=== PATIENT | female | born 1980 | race Caucasian/White ===

== ENCOUNTER 2024-08-04 08:45 | Outpatient (OUT) | payer MEDICAID, SELFPAY ==
--- NOTE | 2024-08-04 | XR_ITS ---
The [address] [address] Patient Name: GEGE POPE MRN: [id number] date: 1980 Sex: F Assigned Patient Location: Current Patient Location: Accession/Order Number: [id number] Exam Date: 08/04/2024 09:02 Report Date: 08/04/2024 10:57 At the request of: CHRISTINA TOBIN Procedure: XR foot LT min 3V PROCEDURE: XR foot LT min 3V COMPARISON: None. HISTORY: LEFT FOOT PAIN FINDINGS: BONES:Mild to moderate hallux valgus. Mild osteoarthropathy first metatarsal-phalangeal joint SOFT TISSUES:Negative. No visible soft tissue swelling. EFFUSION:None visible. OTHER: Negative. XR/XR foot LT min 3V IMPRESSION: Mild to moderate moderate hallux valgus with first metatarsal-phalangeal joint osteoarthritis Electronically authenticated by: ALPHONSO APARICIO Date: 08/04/2024 10:57
== END 2024-08-04 08:46 | disposition home or self-care (01) ==
PROVIDERS: Visit Provider Podiatrist Foot & Ankle Surgery
DX: M79.672 Pain in left foot (principal)
CPT/HCPCS: 73630

== ENCOUNTER 2024-12-14 13:05 | Emergency (ER) | payer MEDICAID, SELFPAY ==
[2024-12-14 13:10] VITALS: BP 145/87; PULSE 86; TEMP 36.7; O2SAT 99; BMI 20.6
--- OUTSIDE RECORDS SUMMARY | 2024-12-14 13:31 | XMS_ITS | CCD ---
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 Years 0.40-4.50 Ranges First trimester 0.26-2.66 Second trimester 0.55-2.73 Third trimester 0.43-2.91 Performed By: #### 7 600, 57001, 6399 #### [facility] [address], [address] [place] [address] Stuffed Casing Tier: Kiko Coughlin MD Estradiolon 07-24-2024 E2 [Mass/Vol] 287 pg/mL [facility] Comment on above: Reference Range Follicular Phase: 19-144 Mid-Cycle: 64-357 Luteal Phase: 56-214 Postmenopausal: < or = 31 Reference range established on post-pubertal patient population. No pre-pubertal reference range established using this assay. For any patients for whom low Estradiol levels are anticipated (e.g. males, pre-pubertal children and hypogonadal/post-menopausal females), the [facility] Estradiol, Ultrasensitive, LCMSMS assay is recommended (order code 32491). Please note: patients being treated with the drug fulvestrant (Faslodex(R)) have demonstrated significant interference in immunoassay methods for estradiol measurement. The cross reactivity could lead to falsely elevated estradiol test results leading to an inappropriate clinical assessment of estrogen status. [facility] order code 43065-[id number], Ultrasensitive LC/MS/MS demonstrates negligible cross reactivity with fulvestrant. Follicle stimulating hormone on 07-24-2024 Follitropin Qn 5.0 m[IU]/mL mIU/mL [facility] Comment on above: Reference Range Follicular Phase 2.5-10.2 Mid-cycle Peak 3.1-17.7 Luteal Phase 1.5- 9.1 Postmenopausal 23.0-116.3 No Panel Informationon 07-24 Performing Organization Information Site ID: QPT Name: [facility] Address: [address] [place] [address], [address] [place] [id number] Director: Kiko Coughlin MD [facility] XR Spine Cervical Complete w /Flex AND [place] 07-04-2022 XR Spine Cervical Complete w/Flex AND Ext HISTORY: Radiating neck pain FINDINGS: Mild disc space loss. Minimal osteophyte formation C5-6, C6-7. Mild diffuse facet arthropathy, minimal neuroforaminal stenosis. No acute fracture or dislocation or significant spondylolisthesis is seen. Prevertebral soft tissues are normal. No significant carotid bulb calcifications are identified. Flexion and extension: C1-2, C2-3: Normal alignment no change C3-4 and C4-5: 0 mm with extension, 1 mm anterolisthesis with flexion. C5-6: 1 mm retrolisthesis, minimal change. C6-7: Normal alignment, no change. IMPRESSION: 1. 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 2. Minimal motion with flexion and extension. Report reported and signed by Raheel Cortez on 07/04/2022 1242 Normal [facility] Trimmer Helper Garrison 02-19-2022 L - -------- Specimen: Received: 02/19/22 Status: MARYA Chaves Num: [id number] Spec Type: Surgical Subm Dr: Altaf Tobin DO Tissues: A Uterus w/ or w/o tubes ovaries except neoplastic or prolap (UTERUS) Procedures: HE /, Gross/Micro L5 -------- Patient Age/Sex Location Account Attending Physician -------- Marisela Nath 41/F MD [id number] Altaf Tobin DO -------- SPEC NUM: [id number] RECD: 02/19/22 STATUS: MARYA CHAVES NUM: [id number] TIFFANI: 02/19/22- [facility] DR: Altaf Tobin, ENTERED: 02/19/22 [facility] DR: [facility] SPEC TYPE: Surgical DEPT: S ENTERED BY: [id number] RECV BY: [id number] ORDERED: HE Stain/12, Gross/Micro L5 ORDERED: HE Stain/12, Gross/Micro L5 Pathological Diagnosis Uterus, cervix, bilateral fallopian tubes and right ovary, total hysterectomy, bilateral salpingectomy and right oophorectomy: - Secretory phase endometrium with superficial adenomyosis. - Cervix with nabothian cysts. - Benign peritoneal reflection simple cyst. - Left fallopian tube with paratubal cysts. - Right fallopian tube with no significant pathologic findings. - Right ovary with hemorrhagic luteal cyst, follicular cysts and area of vascular malformation. Clinical Information Pelvic pain, hydrosalpinx, dysmenorrhea, adenomyosis Gross Description Received in formalin labeled with the patient's name, number and cervix, uterus, bilateral fallopian tubes and right ovary is a 111.3 g uterus and cervix (8.4 cm cervix - fundus by 5.5 cm cornu - cornu by 4.2 cm anterior-posterior) with attached bilateral fimbriated and ligated appearing fallopian tubes (left: 4 cm in length by 0.6 cm in diameter, right: 4.5 cm in length by 0.5 cm in diameter) and attached intact right ovary (3.5 x 2.2 x 1.9 cm). The uterine serosa is johnson-pink and smooth (anterior = blue and posterior = black). There is a 1 cm loosely adherent intact cyst attached to the peritoneal reflection. There is a 3.5 x 3 cm johnson-pink, smooth ectocervix that surrounds a 0.9 cm slitlike os. The left cornu has an attached ligation clip. The specimen is bivalved to reveal a 3.5 x 2.5 cm endometrial cavity. The cavity is lined by a johnson-pink, finely lobulated mucosa that measures up to 0.5 -------- Specimen: Received: 02/19/22 Status: MARYA Chaves Num: [id number] Spec Type: Surgical Subm Dr: Altaf Tobin DO Tissues: A Uterus w/ or w/o tubes ovaries except neoplastic or prolap (UTERUS) Procedures: HE /12, Gross/Micro L5 -------- Patient: PhamMarisela [id number] (Continued) -------- Specimen: Received: 02/19/22 (Continued) Gross Description (Continued) Signed (signature on file) Andrew Roe MD 02/20/22 1701 -------- Specimen: Received: 02/19/22 Status: MARYA Chaves Num: [id number] Spec Type: Surgical Subm Dr: Altaf Tobin, Tissues: A Uterus w/ or w/o tubes ovaries except neoplastic or prolap (UTERUS) Procedures: HE , Gross/Micro L5 -------- Patient: Marisela Nath [id number] (Continued) -------- Specimen: [id number] Received: 02/19/22 (Continued) Gross Description (Continued) cm in thickness. The myometrium is johnson-pink and rubbery and measures up to 1.6 cm in thickness. The cervix is lined by a johnson-pink, corrugated mucosa. Sectioning of the cervix reveals johnson, rubbery cut surfaces with few nabothian cysts. The cysts measure up to 0.6 cm and contain clear to cloudy mucoid material. The fallopian tube serosa is pink-purple with few paratubal cysts. The cysts measure up to 1 cm. Sectioning reveals a pinpoint lumen lined by johnson-pink, soft mucosa. Sectioning of the right ovary reveals johnson-pink, solid and cystic cut surfaces with evidence of possible corpus lutea and albicans. [employer] sections are submitted in 12 cassettes as follows: A1 - Anterior endomyometrium A2 - Posterior endomyometrium A3 - Anterior cervix A4 - Posterior cervix A5 - Peritoneal reflection cyst A6-A7 - [employer]obile Taillight Assembler left fallopian tube A8-A9 - Automobile Taillight Assembler right fallopian tube (more content not included)... [facility] COVID[facility] [place] SARS-CoV-2 (COVID-19) RNA KARY+probe Ql (Unsp spec) Positive Critically abnormal Negative [facility] Comment on above: Order Comment: Alden ts called at 0910 on 01/23/22. Healthcare Worker?: N Result Comment: Posi tive results will only be called to Providers for the following groups of patients: Pre-Surgical Testing, Emergency Room, and Inpatients. Testing for SARS-CoV-2 by RT-PCR This test was developed and its performance characteristics determined by [employer] [employer] and validated at the [facility]. This test has not been FDA cleared or approved. This test has been authorized by FDA under an Emergency Use Authorization (EUA). This test has been validated in accordance with the FDA's Guidance Document (Policy for Diagnostics Testing in Laboratories Certified to Perform High Complexity Testing under CLIA prior to Emergency Use Authorization for Coronavirus Disease-2019 during the Public Health Emergency) issued on February 03, 2020. This test is only authorized for the duration of time the declaration that circumstances exist justifying the authorization of the emergency use of in vitro diagnostic tests for detection of SARS-CoV-2 virus and/or diagnosis of COVID-19 infection under section 564(b)(1) of the Act, 21 U.S.C. 360bbb-3(b)(1), unless the authorization is terminated or revoked sooner. PERFORMED BY: [place] [address] PATHOLOGIST CRUSHER AND BINDER OPERATOR MINA RUIZ M.D. Performed By: #### C OVID 19 [facility] [place] #### [address] RESPIRATORY PANEL PLUSon Adenovirus Not detected Normal NOT DETECTED [facility] Comment on above: Performed By: #### R SPLUS #### [facility] [address] [place] [address] Dr. Joan Groves Parapertusis Not detected Normal NOT DETECTED [facility] Comment on above: Performed By: #### R SPLUS #### [facility] [address] [place] [address] Dr. Joan Groves Pertussis Not detected Normal NOT DETECTED [facility] Comment on above: Performed By: #### R SPLUS #### [facility] [address] [place] [address] Dr. Joan Valenzuela Chlamydia Pneumoniae Not detected Normal NOT DETECTED [facility] Comment on above: Performed By: #### R SPLUS #### [facility] [address] [place] [address] Dr. Joan Valenzuela Coronavirus 229E Not detected Normal NOT DETECTED [facility] Comment on above: Performed By: #### R SPLUS #### [facility] [address] [place] [address] Dr. Joan Valenzuela Coronavirus HKU1 Not detected Normal NOT DETECTED [facility] Comment on above: Performed By: #### R SPLUS #### [facility] [address] [place] [address] Dr. Joan Valenzuela Coronavirus NL63 Not detected Normal NOT DETECTED [facility] Comment on above: Performed By: #### R SPLUS #### [facility] [address] [place] [address] Dr. Joan Valenzuela Coronavirus OC43 Not detected Normal NOT DETECTED [facility] Comment on above: Performed By: #### R SPLUS #### [facility] [address] [place] [address] Dr. Joan Valenzuela Influenza A H1 2009 Not detected Normal NOT DETECTED [facility] Comment on above: Performed By: #### R SPLUS #### [facility] [address] [place] [address] Dr. Joan Valenzuela Influenza A H3 Not detected Normal NOT DETECTED [facility] Comment on above: Performed By: #### R SPLUS #### [facility] [address] [place] [address] Dr. Joan Valenzuela Influenza B Not detected Normal NOT DETECTED The [facility] Comment on above: Performed By: #### R SPLUS #### [facility] [address] [place] [address] Dr. Joan Valenzuela Metapneumovirus Not detected Normal NOT DETECTED [facility] Comment on above: Performed By: #### R SPLUS #### [facility] [address] [place] [address] Dr. Joan Valenzuela Mycoplas. Pneumoniae Not detected Normal NOT DETECTED [facility] Comment on above: Performed By: #### R SPLUS #### [facility] [address] [place] [address] Dr. Joan Valenzuela Parainfluenza 1 Not detected Normal NOT DETECTED [facility] Comment on above: Performed By: #### R SPLUS #### [facility] [address] [address] [address] Joan Valenzuela Parainfluenza 2 Not detected Normal NOT DETECTED [facility] Comment on above: Performed By: #### R SPLUS #### [facility] [address] [place] [address] Dr. Joan Valenzuela Parainfluenza 3 Not detected Normal NOT DETECTED [facility] Comment on above: Performed By: #### R SPLUS #### [facility] [address] [place] [address] Dr. Joan Valenzuela Parainfluenza 4 Not detected Normal NOT DETECTED [facility] Comment on above: Performed By: #### R SPLUS #### [facility] [address] [place] [address] Dr. Joan Valenzuela Rhino/Enterovirus Not detected Normal NOT DETECTED [facility] Comment on above: Performed By: #### R SPLUS #### [facility] [address] [place] [address] Dr. Joan Valenzuela RP2 Header 1 RESPIRATORY PANEL: VIRUSES Normal [facility] Comment on above: Performed By: #### R SPLUS #### [facility] [address] [place] [address] Dr. Joan Valenzuela RP2 Header 2 RESPIRATORY PANEL: BACTERIA Normal [facility] Comment on above: Performed By: #### R SPLUS #### [facility] [address] [place] [address] Dr. Joan Valenzuela RSV Not detected Normal NOT DETECTED [facility] Comment on above: Performed By: #### R SPLUS #### [facility] [address] [place] [address] Dr. Joan Valenzuela SARS-CoV-2 (COVID-19) RNA KARY+probe Ql (Unsp spec) Detected Critically abnormal NOT DETECTED [facility] Comment on above: Performed By: #### R SPLUS #### [facility] [address] [address] [address] Joan Valenzuela XR WRIST LT MIN 3 Von 2020 XR WRIST LT MIN 3 V EXAM: XR WRIST LT NC N 3 V HISTORY: Pain of left wrist COMPARISON: None. TECHNIQUE: 3 views left wrist FINDINGS: No acute displaced fracture or dislocation identified. There is moderate dorsal soft tissue swelling. IMPRESSION: Negative radiographic evaluation for fracture. Electronically authenticated by: GEOFF LESLIE Date: 2021-08-25 17:32 Normal [facility] Celiacon 05-10-2021 Deamidated Gliadin Abs, IgA 5 Normal 0-19 [facility] Comment on above: Result Comment: Nega tive 0 - 19 Weak Positive 20 - 30 Moderate to Strong Positive >30 Performed By: #### C MP, ESR, CBC #### [facility] [address] [place] [address] [place] #### CELIAC #### [facility] , Deamidated Gliadin Abs, IgG 1 Normal 0-19 [facility] Comment on above: Result Comment: Nega tive 0 - 19 Weak Positive 20 - 30 Moderate to Strong Positive >30 Performed By: #### C MP, ESR, CBC #### [facility] [address] [place] [address] [place] #### CELIAC #### [facility] , Endomysial Antibody IgA Negative Normal Negative [facility] Comment on above: Performed By: #### C MP, ESR, CBC #### [facility] [address] [place] [address] [place] #### CELIAC #### [facility] , Immunoglobulin A, Qn, Serum 157 mg/dL Normal 87-352 [facility] Comment on above: Result Comment: Perf ormed at: CB - [facility] [address] [id number] Asphalt Paving Foreman: Neil Morgan PhD, Phone: [phone] PERFORMED BY: [place] [address] PATHOLOGIST CRUSHER AND BINDER OPERATOR MINA RUIZ M.D. Performed By: #### C MP, ESR, CBC #### [place] [address] [place] #### CELIAC #### [facility] , T-Transglutaminase (tTG) IgA <2 Normal 0-3 [facility] Comment on above: Result Comment: Nega tive 0 - 3 Weak Positive 4 - 10 Positive >10 Tissue Transglutaminase (tTG) has been identified as the endomysial antigen. Studies have demonstr- ated that endomysial IgA antibodies have over 99% specificity for gluten sensitive enteropathy. Performed By: #### C MP, ESR, CBC #### [place] [address] [place] #### CELIAC #### [facility] , T-Transglutaminase (tTG) IgG <2 Normal 0-5 [facility] Comment on above: Result Comment: Nega tive 0 - 5 Weak Positive 6 - 9 Positive >9 Performed By: #### C MP, ESR, CBC #### [place] [address] [place] #### CELIAC #### [facility] , Complete Blood Count Auto Di ffon 05-10-2021 Basophils (Bld) [#/Vol] 0.1 10*3/uL Normal 0.0-0.2 [facility] Comment on above: Performed By: #### C MP, ESR, CBC #### [place] [address] [place] #### CELIAC #### [facility] , Basophils/100 WBC (Bld) 0.9 % Normal . [facility] Comment on above: Performed By: #### C MP, ESR, CBC #### [place] [address] [place] #### CELIAC #### [facility] , Eosinophils (Bld) [#/Vol] 0.0 10*3/uL Normal 0.0-0.45 [facility] Comment on above: Performed By: #### C MP, ESR, CBC #### [place] [address] [place] #### CELIAC #### [facility] , Eosinophils/100 WBC (Bld) 0.5 % Normal . [facility] Comment on above: Performed By: #### C MP, ESR, CBC #### [place] [address] [place] #### CELIAC #### [facility] , Erythrocyte distribution width (RBC) [Ratio] 13.3 % Normal 11.9-15.3 [facility] Comment on above: Performed By: #### C MP, ESR, CBC #### [place] [address] [place] #### CELIAC #### [facility] , Hematocrit (Bld) [Volume fraction] 42.5 % Normal 34.0-46.4 [facility] Comment on above: Performed By: #### C MP, ESR, CBC #### [place] [address] [place] #### CELIAC #### [facility] , Hemoglobin (Bld) [Mass/Vol] 14.6 g/dL Normal 11.8-15.4 [facility] Comment on above: Performed By: #### C MP, ESR, CBC #### [place] [address] [place] #### CELIAC #### [facility] , Lymphocytes (Bld) [#/Vol] 1.5 10*3/uL Normal 1.00-4.8 [facility] Comment on above: Performed By: #### C MP, ESR, CBC #### [place] [address] [place] #### CELIAC #### [facility] , Lymphocytes/100 WBC (Bld) 22.6 % Normal . [facility] Comment on above: Performed By: #### C MP, ESR, CBC #### [place] [address] [place] #### CELIAC #### [facility] , MCH (RBC) [Entitic mass] 34.3 pg Normal 24.7-34.3 [facility] Comment on above: Performed By: #### C MP, ESR, CBC #### [place] [address] [place] #### CELIAC #### [facility] , MCV (RBC) [Entitic vol] 100.0 fL Normal 80-100 [facility] Comment on above: Performed By: #### C MP, ESR, CBC #### [address] #### CELIAC #### [facility] , Mean Corpuscular HGB Conc 34.3 g/dL Normal 32.0-35.0 [facility] Comment on above: Performed By: #### C MP, ESR, CBC #### [address] #### CELIAC #### [facility] , Monocytes (Bld) [#/Vol] 0.3 10*3/uL Normal 0.0-0.8 [facility] Comment on above: Performed By: #### C MP, ESR, CBC #### [facility] [address] [place] [address] [place] #### CELIAC #### [facility] , Monocytes/100 WBC (Bld) 5.1 % Normal . [facility] Comment on above: Performed By: #### C MP, ESR, CBC #### [place] [address] [place] #### CELIAC #### [facility] , Neutrophils (Bld) [#/Vol] 4.6 10*3/uL Normal 1.8-7.7 [facility] Comment on above: Performed By: #### C MP, ESR, CBC #### [place] [address] [place] #### CELIAC #### [facility] , Neutrophils/100 WBC (Bld) 70.9 % Normal . [facility] Comment on above: Performed By: #### C MP, ESR, CBC #### [place] [address] [place] #### CELIAC #### [facility] , Nucleated RBC/100 WBC (Bld) [Ratio] 0.2 % Normal 0-0.5 [facility] Comment on above: Performed By: #### C MP, ESR, CBC #### [place] [address] [place] #### CELIAC #### [facility] , Platelet mean volume (Bld) [Entitic vol] 8.1 fL Normal 6.3-10.7 [facility] Comment on above: Performed By: #### C MP, ESR, CBC #### [place] [address] [place] #### CELIAC #### [facility] , Platelets (Bld) [#/Vol] 296 10*3/uL Normal 150-450 [facility] Comment on above: Performed By: #### C MP, ESR, CBC #### [place] [address] [place] #### CELIAC #### [facility] , RBC (Bld) [#/Vol] 4.25 10*6/uL Normal 3.60-5.00 [facility] Comment on above: Performed By: #### C MP, ESR, CBC #### [place] [address] [place] #### CELIAC #### [facility] , WBC (Bld) [#/Vol] 6.5 10*3/uL Normal 4.5-11.0 [facility] Comment on above: Performed By: #### C MP, ESR, CBC #### [facility] [address] [place] [address] [place] #### CELIAC #### [facility] , Comprehensive Metabolic Pane garrison 05-10-2021 Albumin [Mass/Vol] 4.3 g/dL Normal 3.2-5.5 [facility] Comment on above: Performed By: #### C MP, ESR, CBC #### [facility] [address] [place] [address] [place] #### CELIAC #### [facility] , Albumin/Globulin [Mass ratio] 1.5 {ratio} Normal [facility] Comment on above: Performed By: #### C MP, ESR, CBC #### [facility] [address] [place] [address] [place] #### CELIAC #### [facility] , ALP [Catalytic activity/Vol] 34 U/L Normal 32-92 [facility] Comment on above: Performed By: #### C MP, ESR, CBC #### [place] [address] [place] #### CELIAC #### [facility] , ALT [Catalytic activity/Vol] 11 U/L Normal 10-60 [facility] Comment on above: Performed By: #### C MP, ESR, CBC #### [facility] [address] [place] [address] [place] #### CELIAC #### [facility] , AST [Catalytic activity/Vol] 20 U/L Normal 10-42 [facility] Comment on above: Performed By: #### C MP, ESR, CBC #### [facility] [address] [place] [address] [place] #### CELIAC #### [facility] , Bilirubin [Mass/Vol] 0.7 mg/dL Normal 0.3-1.2 [facility] Comment on above: Performed By: #### C MP, ESR, CBC #### [facility] [address] [place] [address] #### CELIAC #### [facility] , Calcium [Mass/Vol] 9.1 mg/dL Normal 8.2-10.2 [facility] Comment on above: Performed By: #### C MP, ESR, CBC #### [place] [address] [place] #### CELIAC #### [facility] , Chloride [Moles/Vol] 107 mmol/L Normal 95-114 [facility] Comment on above: Performed By: #### C MP, ESR, CBC #### [place] [address] [place] #### CELIAC #### [facility] , CO2 [Moles/Vol] 23.3 mmol/L Normal 22.0-30.0 [facility] Comment on above: Performed By: #### C MP, ESR, CBC #### [facility] [address] [place] [address] #### CELIAC #### [facility] , Creatinine [Mass/Vol] 0.66 mg/dL Normal 0.44-1.03 [facility] Comment on above: Performed By: #### C MP, ESR, CBC #### [facility] [address] [place] [address] [place] #### CELIAC #### [facility] , Creatinine Clr Calc Pharmacy 99.31 Normal [facility] Comment on above: Result Comment: PERF ORMED BY: [place] [address] PATHOLOGIST CRUSHER AND BINDER OPERATOR MINA RUIZ M.D. Performed By: #### C MP, ESR, CBC #### [address] [address] [place] #### CELIAC #### [facility] , Estimated GFR ( Emely > 60 Normal [facility] Comment on above: Result Comment: GFR estimated reference range: According to KDOQI guidelines, <60 ml/min/1.73m2 is sufficient to diagnose a patient with chronic kidney disease. Performed By: #### C MP, ESR, CBC #### [place] [address] [place] #### CELIAC #### [facility] , Estimated GFR (Non- Am > 60 Normal [facility] Comment on above: Performed By: #### C MP, ESR, CBC #### [place] [address] [place] #### CELIAC #### [facility] , Globulin (S) [Mass/Vol] 2.9 g/dL Normal [facility] [facility] Comment on above: Performed By: #### C MP, ESR, CBC #### [place] [address] [place] #### CELIAC #### [facility] , Glucose [Mass/Vol] 80 mg/dL Normal 70-100 [facility] Comment on above: Result Comment: Lucas Glucose Reference Range is dependent on time and content of last meal. Glucose of more than 200 mg/dL in a nonstressed, ambulatory subject supports the diagnosis of Diabetes Mellitus. ADA recommended reference range Performed By: #### C MP, ESR, CBC #### [place] [address] [place] #### CELIAC #### [facility] , Potassium [Moles/Vol] 4.4 mmol/L Normal 3.5-5.1 [facility] Comment on above: Performed By: #### C MP, ESR, CBC #### [place] [address] [place] #### CELIAC #### [facility] , Protein [Mass/Vol] 7.2 g/dL Normal 6.1-7.9 [facility] Comment on above: Performed By: #### C MP, ESR, CBC #### [facility] [address] [place] [address] #### CELIAC #### [facility] , Sodium [Moles/Vol] 140 mmol/L Normal 136-146 [facility] Comment on above: Performed By: #### C MP, ESR, CBC #### [address] #### CELIAC #### [facility] , Urea nitrogen [Mass/Vol] 6 mg/dL Low 9-23 [facility] Comment on above: Performed By: #### C MP, ESR, CBC #### [address] #### CELIAC #### [facility] , Erythrocyte Sedimentation Ra nico 05-10-2021 ESR (Bld) [Velocity] 11 mm/h Normal 0-19 [facility] Comment on above: Result Comment: PERF ORMED BY: [place] [address] PATHOLOGIST CRUSHER AND BINDER OPERATOR MINA RUIZ M.D. Performed By: #### C MP, ESR, CBC #### [address] #### CELIAC #### [facility] , HCG,Urineon 05-10-2021 Beta HCG ( test) Ql (U) Negative Normal [facility] Comment on above: Result Comment: PERF ORMED BY: [place] [address] PATHOLOGIST CRUSHER AND BINDER OPERATOR MINA RUIZ M.D. Performed By: #### U HCG #### [address] COVID-19 Antigenon 1 COVID-19 Antigen Healthcare Worker?: N Katarzyna Reference Katarzyna Reference Negative SARS-CoV+SARS-CoV-2 (COVID-19) Ag [Presence] in Respiratory specimen by Rapid immunoassay Negative for SARS Antigen by BREANA COVID19 Blank Space Katarzyna Disclaimer Negative results, from patients with symptom Katarzyna Disclaimer onset beyond five days, should be treated as Katarzyna Disclaimer presumptive and confirmation with a molecular Katarzyna Disclaimer assay, if necessary, for patient management, Katarzyna Disclaimer may be performed. Negative results do not rule Katarzyna Disclaimer out COVID-19 and should not be used as the sole Katarzyna Disclaimer basis for treatment or patient management Katarzyna Disclaimer decisions, including infection control decisions. Katarzyna Disclaimer Negative results should be considered in the Katarzyna Disclaimer context of a patient's recent exposures, history Katrazyna Disclaimer and the presence of clinical signs and symptoms Katarzyna Disclaimer consistent with COVID-19. COVID19 Blank Space Katarzyna Disclaimer The Katarzyna SARS Antigen BREANA does not differentiate Katarzyna Disclaimer between SARS-CoV and SARS-CoV-2. COVID19 Blank Space Katarzyna Disclaimer This test was developed and its performance Katarzyna Disclaimer characteristic determined by [employer] and Katarzyna Disclaimer validated at [facility]. This Katarzyna Disclaimer test has not been FDA cleared or approved. This Katarzyna Disclaimer test has been authorized by FDA under an Emergency Use Katarzyna Disclaimer Authorization (EUA). This test has been validated Katarzyna Disclaimer in accordance with the FDA's Guidance Document (Policy Katarzyna Disclaimer for Diagnostics Testing in Laboratories Certified to Katarzyna Disclaimer Perform High Complexity Testing under CLIA prior to Katarzyna Disclaimer Emergency Use Authorization for Coronavirus Katarzyna Disclaimer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
== END 2024-12-14 14:03 | disposition left against medical advice (07) ==
LOC: ER 13:10
PROVIDERS: Emergency Provider Emergency Medicine; PCP Internal Medicine
DX: Z53.21 Procedure and treatment not carried out due to patient leaving prior to being seen by health care provider (principal)

== ENCOUNTER 2025-01-27 08:16 | Outpatient (OUT) | payer MEDICAID, SELFPAY ==
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
== END 2025-01-27 08:17 | disposition home or self-care (01) ==
LOC: MRI 08:16
PROVIDERS: PCP Internal Medicine; Visit Provider Psychiatry & Neurology Neurology
DX: M54.16 Radiculopathy, lumbar region (principal)
CPT/HCPCS: 72148

== ENCOUNTER 2025-05-30 07:37 | Outpatient (OUT) | payer MEDICAID, SELFPAY ==
--- OUTSIDE RECORDS SUMMARY | 2025-05-30 07:44 | XMS_ITS | CCD ---
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 neck pain. COMPARISON: No comparison. FINDINGS: The cervical vertebral elements are of appropriate height, and alignment. Minimal anterior spondylosis inferior plate C5. The disc spaces are slightly narrowed at C5-C6 and C6-C7. The other disc levels are fairly well-maintained. No fractures or subluxations. The atlantoaxial relationships appear within the limits of normal. The visualized lung apices are clear. IMPRESSION: Early disc space height loss primarily at C5-C6. *This report is generated using voice recognition reporting (Zaranga). On occasion Oodle[employer] erroneously drops words from the report or replaces the spoken word with similar sounding words. Please call with any questions/concerns regarding this report.* Dictated and transcribed 12/16/2024/ This report has been electronically signed and approved by the interpreting radiologist. Normal Not Available XR FACIAL BONES 3+ VIEWSon 0 12-16-2024 XR FACIAL BONES 3+ VIEWS Exam: XR FACIAL BONES 3+ VIEWS Clinical History: Fall on ice five days ago, left sided facial pain Reference Exam: No comparison FINDINGS: No fracture or other acute bony abnormality of the facial structures. No air-fluid level in the paranasal sinuses. IMPRESSION: No abnormality of the facial structures is identified by this routine radiographic assessment. Dictated on: 12/16/2024 2:40 PM This report has been electronically signed and approved by the interpreting Radiologist. Normal Not Available XR LUMBAR SPINE 2-3 VIEWSon 12-16-2024 XR LUMBAR SPINE 2-3 VIEWS Exam: XR LUMBAR SPINE 2-3 VIEWS Clinical History: Fall on ice five days ago, low back and tailbone pain Reference Exam: No comparison FINDINGS: There are 5 nonrib-bearing lumbar vertebral elements which are of appropriate height, contour, and alignment. Minor disc space height loss L5-S1. The other disc spaces are fairly well-maintained. No fractures or subluxations. The pedicles are not splayed. The sacroiliac joints and the sacral arcuate lines align appropriately. Nonobstructive abdominal bowel gas pattern. Impression: Minor degenerative disc space height loss L5-S1. No acute fracture or subluxation. Dictated on: 12/16/2024 2:40 PM This report has been electronically signed and approved by the interpreting Radiologist. Normal Not Available XR SACRUM COCCYX 2+ VIEWSon 12-16-2024 XR SACRUM COCCYX 2+ VIEWS Exam: XR SACRUM COCCYX 2+ VIEWS Clinical History: Fall on ice five days ago, tailbone pain Reference Exam: None FINDINGS: The SI joints and the sacral arcuate lines are thought to align appropriately. No symphyseal diastases. Both hips are intact. No pelvic or sacral abnormality. Smooth sacrococcygeal arch. No coccygeal displacement. IMPRESSION: Negative. Dictated on: 12/17/2024 4:37 PM This report has been electronically signed and approved by the interpreting Radiologist. Normal Not Available XR SHOULDER 2+ VIEWS LEFTon 12-16-2024 XR SHOULDER 2+ VIEWS LEFT Exam: XR SHOULDER 2+ VIEWS LEFT Clinical History: Fall on ice five days ago, left shoulder pain Reference Exam: No comparison FINDINGS: The left glenohumeral joint is intact. The proximal humerus is unremarkable. The AC joint is intact. No clavicular abnormality is identified. The sternoclavicular joint is intact. No scapular abnormality. No rib fracture, pneumothorax, or apical lung abnormality is identified. IMPRESSION: No acute abnormality is identified regional to the left shoulder. Dictated on: 12/16/2024 2:40 PM This report has been electronically signed and approved by the interpreting Radiologist. Normal Not Available CBC (INCLUDES DIFF/PLT)on Basophils (Bld) [#/Vol] 0.06 10*3/uL Normal 0-200 [facility] Comment on above: Performed By: #### 7 600, 32729, 6399 #### [facility] of [address], [address] [place] [address] [employer] Operator: Kiko Coughlin MD Basophils/100 WBC (Bld) 0.7 % Normal [facility] Comment on above: Performed By: #### 7 600, 80056, 6399 #### [facility] of [address], [address] [place] [address] [employer] Operator: Kiko Coughlin MD Eosinophils (Bld) [#/Vol] 0.077 10*3/uL Normal 15-500 [facility] Comment on above: Performed By: #### 7 600, 24946, 6399 #### [facility] of [place] [address] [employer] Operator: Kiko Coughlni MD Eosinophils/100 WBC (Bld) 0.9 % Normal [facility] Comment on above: Performed By: #### 7 600, , 6399 #### [facility] of [place] [address] [employer] Operator: Kiko Coughlin MD Erythrocyte distribution width (RBC) [Ratio] 12.0 % Normal 11.0-15.0 [facility] Comment on above: Performed By: #### 7 600, 34751, 6399 #### [facility] of [place] [address] [employer] Operator: Kiko Coughlin MD Hematocrit (Bld) [Volume fraction] 42.8 % Normal 35.0-45.0 [facility] Comment on above: Performed By: #### 7 600, 26842, 6399 #### [facility] of [place] [address] [employer] Operator: Kiko Coughlin MD Hemoglobin (Bld) [Mass/Vol] 14.3 g/dL Normal 11.7-15.5 [facility] Comment on above: Performed By: #### 7 600, 71781, 6399 #### [facility] of [place] [address] [place] [address] [employer] Operator: Kiko Coughlin MD Lymphocytes (Bld) [#/Vol] 1.625 10*3/uL Normal 850-3900 [facility] Comment on above: Performed By: #### 7 600, 58612, 6399 #### [facility] [address], [address] [place] [address] [employer] Operator: Kiko Coughlin MD Lymphocytes/100 WBC (Bld) 18.9 % Normal [facility] Comment on above: Performed By: #### 7 600, , 6399 #### [facility] [place] [address] [employer] Operator: Kiko Coughlin MD MCH (RBC) [Entitic mass] 33.5 pg High 27.0-33.0 [facility] Comment on above: Performed By: #### 7 600, , 6399 #### [facility] [place] [address] [employer] Operator: Kiko Coughlin MD MCHC (RBC) [Mass/Vol] 33.4 [...] clinical condition. Performed By: #### 7 600, 42324, 6399 #### [facility] of [place] [address] [employer] Operator: Kiko Coughlin MD MCV (RBC) [Entitic vol] 100.2 fL High 80.0-100.0 [facility] Comment on above: Performed By: #### 7 600, 89273, 6399 #### [facility] [place] [address] [employer] Operator: Kiko Coughlin MD Monocytes (Bld) [#/Vol] 0.447 10*3/uL Normal 200-950 [facility] Comment on above: Performed By: #### 7 600, 12998, 6399 #### [facility] of [place] [address] [employer] Operator: Kiko Coughlin MD Monocytes/100 WBC (Bld) 5.2 % Normal [facility] Comment on above: Performed By: #### 7 600, 55596, 6399 #### [facility] of [place] [address] [employer] Operator: Kiko Coughlin MD Neutrophils (Bld) [#/Vol] 6.39 10*3/uL Normal 0250-4638 [facility] Comment on above: Performed By: #### 7 600, 38668, 6399 #### [facility] of [place] [address] [employer] Operator: Kiko Coughlin MD Neutrophils/100 WBC (Bld) 74.3 % Normal [facility] Comment on above: Performed By: #### 7 600, 31686, 6399 #### [facility] of [place] [address] [employer] Operator: Kiko Coughlin MD Platelet mean volume (Bld) [Entitic vol] 10.6 fL Normal 7.5-12.5 [facility] Comment on above: Performed By: #### 7 600, 14241, 6399 #### [facility] of [place] [address] [employer] Operator: Kiko Coughlin MD Platelets (Bld) [#/Vol] 289 10*3/uL Normal 140-400 [facility] Comment on above: Performed By: #### 7 600, 32930, 6399 #### [facility] of [place] [address] [employer] Operator: Kiko Coughlin MD RBC (Bld) [#/Vol] 4.27 10*6/uL Normal 3.80-5.10 [facility] Comment on above: Performed By: #### 7 600, 64179, 6399 #### [facility] of [address], [address] [place] [address] [employer] Operator: Kiko Coughlin MD WBC (Bld) [#/Vol] 8.6 10*3/uL Normal 3.8-10.8 [facility] Comment on above: Performed By: #### 7 600, 02804, 6399 #### [facility] of [address], [address] [place] [address] [employer] Operator: Kiko Coughlin MD COMPREHENSIVE METABOLIC PANE [facility] 11-11-2024 Albumin [Mass/Vol] 4.5 g/dL Normal 3.6-5.1 [facility] Comment on above: Performed By: #### 7 600, 57073, 6399 #### [facility] of [address], [address] [place] [address] [employer] Operator: Kiko Coughlin MD Albumin/Globulin [Mass ratio] 1.8 {ratio} Normal 1.0-2.5 [facility] Comment on above: Performed By: #### 7 600, 90223, 6399 #### [facility] of [address], [address] [place] [address] [employer] Operator: Kiko Coughlin MD ALP [Catalytic activity/Vol] 35 U/L Normal 31-125 [facility] Comment on above: Performed By: #### 7 600, 23178, 6399 #### [facility] of [place] [address] [employer] Operator: Kiko Coughlin MD ALT [Catalytic activity/Vol] 8 U/L Normal 6-29 [facility] Comment on above: Performed By: #### 7 600, 14925, 6399 #### [facility] of [place] [address] [employer] Operator: Kiko Coughlin MD AST [Catalytic activity/Vol] 15 U/L Normal 10-30 [facility] Comment on above: Performed By: #### 7 600, 64107, 6399 #### [facility] of [place] [address] [employer] Operator: Kiko Coughlin MD Bilirubin [Mass/Vol] 0.4 mg/dL Normal 0.2-1.2 [facility] Comment on above: Performed By: #### 7 600, 26407, 6399 #### [facility] [place] [address] [employer] Operator: Kiko Coughlin MD BUN/CREATININE RATIO SEE NOTE: Normal 6-22 [facility] Comment on above: Result Comment: Not Reported: BUN and Creatinine are within reference range. Performed By: #### 7 600, 73552, 6399 #### [facility] [place] [address] [employer] Operator: Kiko Coughlin MD Calcium [Mass/Vol] 9.4 mg/dL Normal 8.6-10.2 [facility] Comment on above: Performed By: #### 7 600, 83003, 6399 #### [facility] [place] [address] [employer] Operator: Kiko Coughlin MD Chloride [Moles/Vol] 106 mmol/L Normal 98-110 [facility] Comment on above: Performed By: #### 7 600, 24451, 6399 #### [facility] [place] [address] [employer] Operator: Kiko Coughlin MD CO2 [Moles/Vol] 23 mmol/L Normal 20-32 [facility] Comment on above: Performed By: #### 7 600, 37578, 6399 #### [facility] [place] [address] [employer] Operator: Kiko Coughlin MD Creatinine [Mass/Vol] 0.61 mg/dL Normal 0.50-0.99 [facility] Comment on above: Performed By: #### 7 600, 80488, 6399 #### [facility] [place] [address] [employer] Operator: Kiko Coughlin MD GFR/1.73 sq M.predicted among non-blacks MDRD (S/P/Bld) [Vol rate/Area] 114 mL/min/{1.73_m2} Normal > OR = 60 [facility] Comment on above: Performed By: #### 7 600, 21666, 6399 #### [facility] of [place] [address] [employer] Operator: Kiko Coughlin MD Globulin (S) [Mass/Vol] 2.5 g/dL Normal 1.9-3.7 [facility] Comment on above: Performed By: #### 7 600, 39215, 6399 #### [facility] of [place] [address] [employer] Operator: Kiko Coughlin MD Glucose [Mass/Vol] 77 mg/dL Normal 65-99 [facility] Comment on above: Result Comment: Fasting reference interval Performed By: #### 7 600, 20519, 6399 #### [facility] of [place] [address] [employer] Operator: Kiko Coughlin MD Potassium [Moles/Vol] 5.2 mmol/L Normal 3.5-5.3 [facility] Comment on above: Performed By: #### 7 600, 48534, 6399 #### [facility] of [place] [address] [employer] Operator: Kiko Coughlin MD Protein [Mass/Vol] 7.0 g/dL Normal 6.1-8.1 [facility] Comment on above: Performed By: #### 7 600, 04729, 6399 #### [facility] of [place] [address] [employer] Operator: Kiko Coughlin MD Sodium [Moles/Vol] 140 mmol/L Normal 135-146 [facility] Comment on above: Performed By: #### 7 600, 23416, 6399 #### [facility] of [place] [address] [employer] Operator: Kiko Coughlin MD Urea nitrogen [Mass/Vol] 7 mg/dL Normal 7-25 [facility] Comment on above: Performed By: #### 7 600, 74361, 6399 #### [facility] [address], [address] [place] [address] [employer] Operator: Kiko Coughlin MD LIPID PANEL, [facility] Cholesterol [Mass/Vol] 181 mg/dL Normal <200 [facility] Comment on above: Order Comment: FASTI NG:YES FASTING: YES Performed By: #### 7 600, 61029, 6399 #### [facility] [address], [address] [place] [address] [employer] Operator: Kiko Coughlin MD Cholesterol in HDL [Mass/Vol] 71 mg/dL Normal > OR = 50 [facility] Comment on above: Order Comment: FASTI NG:YES FASTING: YES Performed By: #### 7 600, 03862, 6399 #### [facility] [address], [address] [place] [address] [employer] Operator: Kiko Coughlin MD Cholesterol in LDL [Mass/Vol] 95 mg/dL Normal [facility] Comment on above: Order Comment: FASTI NG:YES FASTING: YES Result Comment: Refe rence range: <100 Desirable range <100 mg/dL for primary prevention; <70 mg/dL for patients with CHD or diabetic patients with > or = 2 CHD risk factors. LDL-C is now calculated using the Dominic-Eve calculation, which is a validated novel method providing better accuracy than the Friedewald equation in the estimation of LDL-C. Dominic KOHLI et al. SHADE. 2013;310(19): 3455-9766 (http://education.Neocoretech.Taggs/faq/FFK872) Performed By: #### 7 600, 15099, 6399 #### [facility] [address], [address] [place] [address] [employer] Operator: Kiko Coughlin MD Cholesterol.total/C holesterol in HDL [Mass ratio] 2.5 {ratio} Normal <5.0 [facility] Comment on above: Order Comment: FASTI NG:YES FASTING: YES Performed By: #### 7 600, 51256, 6399 #### [facility] [address], [address] [place] [address] [employer] Operator: Kiko Coughlin MD NON HDL CHOLESTEROL 110 mg/dL (calc) Normal <130 [facility] Comment on above: Order Comment: FASTI NG:YES FASTING: YES Result Comment: For patients with diabetes plus 1 major ASCVD risk factor, treating to a non-HDL-C goal of <100 mg/dL (LDL-C of <70 mg/dL) is considered a therapeutic option. Performed By: #### 7 600, 43185, 6399 #### [facility] [address], [address] [place] [address] [employer] Operator: Kiko Coughlin MD Triglyceride [Mass/Vol] 63 mg/dL Normal <150 [facility] Comment on above: Order Comment: FASTI NG:YES FASTING: YES Performed By: #### 7 600, 02928, 6399 #### [facility] [address], [address] [place] [address] [employer] Operator: Kiko Coughlin MD TSH W/REFLEX TO FT4on 2024 TSH W/REFLEX TO FT4 0.91 mIU/L Normal [facility] Comment on above: Result Comment: Refe rence Range > or = 20 Years 0.40-4.50 Ranges First trimester 0.26-2.66 Second trimester 0.55-2.73 Third trimester 0.43-2.91 Performed By: #### 7 600, 56280, 6399 #### [facility] [place] [address] [employer] Operator: Kiko Coughlin MD Estradiolon 07-24-2024 E2 [Mass/Vol] 287 pg/mL [facility] Comment on above: Reference Range Follicular Phase: 19-144 Mid-Cycle: 64-357 Luteal Phase: 56-214 Postmenopausal: < or = 31 Reference range established on post-pubertal patient population. No pre-pubertal reference range established using this assay. For any patients for whom low Estradiol levels are anticipated (e.g. males, pre-pubertal children and hypogonadal/post-menopausal females), the [facility] Estradiol, Ultrasensitive, LCMSMS assay is recommended (order code 82326). Please note: patients being treated with the drug fulvestrant (Faslodex(R)) have demonstrated significant interference in immunoassay methods for estradiol measurement. The cross reactivity could lead to falsely elevated estradiol test results leading to an inappropriate clinical assessment of estrogen status. N-Sided order code 48451-Hynaoeavw, Ultrasensitive LC/MS/MS demonstrates negligible cross reactivity with fulvestrant. Follicle stimulating hormone on 07-24-2024 Follitropin Qn 5.0 m[IU]/mL mIU/mL [facility] Comment on above: Reference Range Follicular Phase 2.5-10.2 Mid-cycle Peak 3.1-17.7 Luteal Phase 1.5- 9.1 Postmenopausal 23.0-116.3 No Panel Informationon 07-24 Performing Organization Information Site ID: QPT Name: [facility]ided [facility] Address: [address] [place] [address], [address] [place] [id number] Director: Kiko Coughlin MD [facility] XR Spine Cervical Complete w /Flex AND Home 07-04-2022 XR Spine Cervical Complete w/Flex AND [...] by Raheel Cortez on 07/04/2022 1242 Normal [facility] Urinalysis Technician [place] 02-19-2022 L - -------- Specimen: Received: 02/19/22 Status: MARYA Archermeli Num: [id number] Spec Type: Surgical Subm Dr: Xavier Tobin DO Tissues: A Uterus w/ or w/o tubes ovaries except neoplastic or prolap (UTERUS) Procedures: HE Stain/12, Gross/Micro L5 -------- Patient Age/Sex Location Account Attending Physician -------- Marisela Nath 41/F [place] [id number] Xavier Tobin DO -------- SPEC NUM: RECD: 02/19/22 STATUS: MARYA ARCHERMeli NUM: [id number] TIFFANI: 02/19/22- SUBM DR: Xavier Tobin DO ENTERED: 02/19/[address] [facility] [address]: Shaheed [facility] SPEC TYPE: Surgical DEPT: S ENTERED BY: [id number] RECV BY: [id number] ORDERED: HE Stain/12, Gross/Micro L5 ORDERED: HE [...] that measures up to 0.5 -------- Specimen: [id number] Received: 02/19/22 Status: MARYA Chaves Num: [id number] Spec Type: Surgical Subm Dr: Xavier Tobin, DO Tissues: A Uterus w/ or w/o tubes ovaries except neoplastic or prolap (UTERUS) Procedures: HE Stain/, Gross/Micro L5 -------- Patient: Marisela Nath [id number] (Continued) -------- Specimen: Received: 02/19/22 (Continued) Gross Description (Continued) Signed (signature on file) Andrew Roe MD 02/20/22 1701 -------- Specimen: Received: 02/19/22 Status: MARYA Chaves Num: [id number] Spec Type: Surgical Subm Dr: Xavier Tobin DO Tissues: A Uterus w/ or w/o tubes ovaries except neoplastic or prolap (UTERUS) Procedures: HE Stain/12, Gross/Micro L5 -------- Patient: Marisela Nath [id number] (Continued) -------- Specimen: [id number] Received: 02/19/22 (Continued) Gross Description (Continued) cm [...] evidence of possible corpus lutea and albicans. Anodiser sections are submitted in 12 cassettes as follows: A1 - Anterior endomyometrium A2 - Posterior endomyometrium A3 - Anterior cervix A4 - Posterior cervix A5 - Peritoneal reflection cyst A6-A7 - Anodiser left fallopian tube A8-A9 - Anodiser right fallopian tube (more content not included)... Normal [facility] COVID-19 FRon 01-22-2022 SARS-CoV-2 (COVID-19) RNA KARY+probe Ql (Unsp spec) Positive Critically abnormal Negative [facility] Comment on above: Order Comment: Alden ts called at 0910 on 01/23/22. Healthcare Worker?: N Result Comment: Posi tive results will only be called to Providers for the following groups of patients: Pre-Surgical Testing, Emergency Room, and Inpatients. Testing for SARS-CoV-2 by RT-PCR This test was developed and its performance characteristics determined by [employer] ([employer]) and validated at the [facility]. This test has not been FDA [...] is terminated or revoked sooner. PERFORMED BY: [place] [address] PATHOLOGIST LITIGATOR MINA RUIZ M.D. Performed By: #### C OVID 19 [facility] #### [address] RESPIRATORY PANEL PLUSon Adenovirus Not detected Normal NOT DETECTED [facility] Comment on above: Performed By: #### R SPLUS #### [facility] [address] [place] [address] Dr. Joan Ogden. Parapertusis Not detected Normal NOT DETECTED [facility] Comment on above: Performed By: #### R SPLUS #### [facility] [address] [place] [address] Dr. Joan Ogden. Pertussis Not detected Normal NOT DETECTED [facility] Comment on above: Performed By: #### R SPLUS #### [facility] [address] [place] [address] Dr. Joan Valenzuela Chlamydia Pneumoniae Not detected Normal NOT DETECTED [facility] Comment on above: Performed By: #### R SPLUS #### [facility] [address] [place] [address] Dr. Joan Valenzuela Coronavirus 229E Not detected Normal NOT DETECTED [facility] Comment on above: Performed By: #### R SPLUS #### [facility] [address] [place] [address] Dr. Joan Valenzuela Coronavirus HKU1 Not detected Normal NOT DETECTED [facility] Comment on above: Performed By: #### R SPLUS #### [facility] [address] [place] [address] Dr. Joan Valenzuela Coronavirus NL63 Not detected Normal NOT DETECTED [facility] Comment on above: Performed By: #### R SPLUS #### [facility] [address] [place] [address] Dr. Joan Valenzuela Coronavirus OC43 Not detected Normal NOT DETECTED [facility] Comment on above: Performed By: #### R SPLUS #### [facility] [address] [place] [address] Dr. Joan Valenzuela Influenza A H1 2009 Not detected Normal NOT DETECTED [facility] Comment on above: Performed By: #### R SPLUS #### [facility] [address] [place] [address] Dr. Joan Valenzuela Influenza A H3 Not detected Normal NOT DETECTED [facility] Comment on above: Performed By: #### R SPLUS #### [facility] [address] [place] [address] Dr. Joan Valenzuela Influenza B Not detected Normal NOT DETECTED [facility] Comment on above: Performed By: #### R SPLUS #### [facility] [address] [place] [address] Dr. Joan Valenzuela Metapneumovirus Not detected Normal NOT DETECTED [facility] Comment on above: Performed By: #### R SPLUS #### [facility] [address] [place] [address] [address] Joan Valenzuela Mycoplas. Pneumoniae Not detected Normal NOT DETECTED [facility] Comment on above: Performed By: #### R SPLUS #### [facility] [address] [place] [address] Dr. Joan Valenzuela Parainfluenza 1 Not detected Normal NOT DETECTED [facility] Comment on above: Performed By: #### R SPLUS #### [facility] [address] [place] [address] Dr. Joan Valenzuela Parainfluenza 2 Not detected Normal NOT DETECTED [facility] Comment on above: Performed By: #### R SPLUS #### [facility] [address] [place] [address] Dr. Joan Valenzuela Parainfluenza 3 Not detected Normal NOT DETECTED [facility] Comment on above: Performed By: #### R SPLUS #### [facility] [address] [place] [address] Dr. Joan Valenzuela Parainfluenza 4 Not detected Normal NOT DETECTED [facility] Comment on above: Performed By: #### R SPLUS #### [facility] [address] [place] [address] Dr. Joan Valenzuela Rhino/Enterovirus Not detected Normal NOT DETECTED [facility] Comment on above: Performed By: #### R SPLUS #### [facility] [address] [place] [address] Dr. Joan Valenzuela RP2 Header 1 RESPIRATORY PANEL: VIRUSES Normal [facility] Comment on above: Performed By: #### R SPLUS #### [facility] [address] [place] [address] Dr. Joan Valenzuela RP2 Header 2 RESPIRATORY PANEL: BACTERIA Normal [facility] Comment on above: Performed By: #### R SPLUS #### [facility] [address] [place] [address] Dr. Joan Valenzuela RSV Not detected Normal NOT DETECTED [facility] Comment on above: Performed By: #### R SPLUS #### [facility] [address] [place] [address] Dr. Joan Valenzuela SARS-CoV-2 (COVID-19) RNA KARY+probe Ql (Unsp spec) Detected Critically abnormal NOT DETECTED [facility] Comment on above: Performed By: #### R SPLUS #### [facility] [address] [place] [address] Dr. Joan Valenzuela XR WRIST LT MIN 3 Von 2020 XR WRIST LT MIN 3 V EXAM: XR WRIST LT ID N 3 V HISTORY: Pain of left wrist COMPARISON: None. TECHNIQUE: 3 views left wrist FINDINGS: No acute displaced fracture or dislocation identified. There is moderate dorsal soft tissue swelling. IMPRESSION: Negative radiographic evaluation for fracture. Electronically authenticated by: DIMITRIS LESLIE Date: 2021-08-25 17:32 Normal [facility] Celiacon 05-10-2021 Deamidated Gliadin Abs, IgA 5 Normal 0-19 [facility] Comment on above: Result Comment: Nega tive 0 - 19 Weak Positive 20 - 30 Moderate to Strong Positive >30 Performed By: #### C MP, ESR, CBC #### [address] #### CELIAC #### [facility] , Deamidated Gliadin Abs, IgG 1 Normal 0-19 [facility] Comment on above: Result Comment: Nega tive 0 - 19 Weak Positive 20 - 30 Moderate to Strong Positive >30 Performed By: #### C MP, ESR, CBC #### [address] #### CELIAC #### [facility] , Endomysial Antibody IgA Negative Normal Negative [facility] Comment on above: Performed By: #### C MP, ESR, CBC #### [address] #### CELIAC #### [facility] , Immunoglobulin A, Qn, Serum 157 mg/dL Normal 87-352 [facility] Comment on above: Result Comment: Perf ormed at: CB - [facility] [address] [id number] Ldr Rn: Neil Morgan PhD, Phone: [phone] PERFORMED BY: [place] [address] PATHOLOGIST LITIGATOR MINA RUIZ M.D. Performed By: #### C MP, ESR, CBC #### [place] [address] [place] #### CELIAC #### [facility] , T-Transglutaminase (tTG) IgA <2 Normal 0-3 [facility] Comment on above: Result Comment: Nega tive 0 - 3 Weak Positive 4 - 10 Positive >10 Tissue Transglutaminase (tTG) has been identified as the endomysial antigen. Studies have demonstr- ated that endomysial IgA antibodies have over 99% specificity for gluten sensitive enteropathy. Performed By: #### C MP, ESR, CBC #### [place] [address] [place] #### CELIAC #### [facility] , T-Transglutaminase (tTG) IgG <2 Normal 0-5 [facility] Comment on above: Result Comment: Nega tive 0 - 5 Weak Positive 6 - 9 Positive >9 Performed By: #### C MP, ESR, CBC #### [place] [address] [place] #### CELIAC #### [facility] , Complete Blood Count Auto Di ffon 05-10-2021 Basophils (Bld) [#/Vol] 0.1 10*3/uL Normal 0.0-0.2 [facility] Comment on above: Performed By: #### C MP, ESR, CBC #### [place] [address] [place] #### CELIAC #### [facility] , Basophils/100 WBC (Bld) 0.9 % Normal . [facility] Comment on above: Performed By: #### C MP, ESR, CBC #### [place] [address] [place] #### CELIAC #### [facility] , Eosinophils (Bld) [#/Vol] 0.0 10*3/uL Normal 0.0-0.45 [facility] Comment on above: Performed By: #### C MP, ESR, CBC #### [place] [address] [place] #### CELIAC #### [facility] , Eosinophils/100 WBC (Bld) 0.5 % Normal . [facility] Comment on above: Performed By: #### C MP, ESR, CBC #### [place] [address] [place] #### CELIAC #### [facility] , Erythrocyte distribution width (RBC) [Ratio] 13.3 % Normal 11.9-15.3 [facility] Comment on above: Performed By: #### C MP, ESR, CBC #### [place] [address] [place] #### CELIAC #### [facility] , Hematocrit (Bld) [Volume fraction] 42.5 % Normal 34.0-46.4 [facility] Comment on above: Performed By: #### C MP, ESR, CBC #### [place] [address] [place] #### CELIAC #### [facility] , Hemoglobin (Bld) [Mass/Vol] 14.6 g/dL Normal 11.8-15.4 [facility] Comment on above: Performed By: #### C MP, ESR, CBC #### [address] #### CELIAC #### [facility] , Lymphocytes (Bld) [#/Vol] 1.5 10*3/uL Normal 1.00-4.8 [facility] Comment on above: Performed By: #### C MP, ESR, CBC #### [place] [address] [place] #### CELIAC #### [facility] , Lymphocytes/100 WBC (Bld) 22.6 % Normal . [facility] Comment on above: Performed By: #### C MP, ESR, CBC #### [place] [address] [place] #### CELIAC #### [facility] , MCH (RBC) [Entitic mass] 34.3 pg Normal 24.7-34.3 [facility] Comment on above: Performed By: #### C MP, ESR, CBC #### [place] [address] [place] #### CELIAC #### [facility] , MCV (RBC) [Entitic vol] 100.0 fL Normal 80-100 [facility] Comment on above: Performed By: #### C MP, ESR, CBC #### [place] [address] [place] #### CELIAC #### [facility] , Mean Corpuscular HGB Conc 34.3 g/dL Normal 32.0-35.0 [facility] Comment on above: Performed By: #### C MP, ESR, CBC #### [place] [address] [place] #### CELIAC #### [facility] , Monocytes (Bld) [#/Vol] 0.3 10*3/uL Normal 0.0-0.8 [facility] Comment on above: Performed By: #### C MP, ESR, CBC #### [place] [address] [place] #### CELIAC #### [facility] , Monocytes/100 WBC (Bld) 5.1 % Normal . [facility] Comment on above: Performed By: #### C MP, ESR, CBC #### [place] [address] [place] #### CELIAC #### [facility] , Neutrophils (Bld) [#/Vol] 4.6 10*3/uL Normal 1.8-7.7 [facility] Comment on above: Performed By: #### C MP, ESR, CBC #### [place] [address] [place] #### CELIAC #### [facility] , Neutrophils/100 WBC (Bld) 70.9 % Normal . [facility] Comment on above: Performed By: #### C MP, ESR, CBC #### [facility] [address] [place] [address] [place] #### CELIAC #### [facility] , Nucleated RBC/100 WBC (Bld) [Ratio] 0.2 % Normal 0-0.5 [facility] Comment on above: Performed By: #### C MP, ESR, CBC #### [place] [address] [place] #### CELIAC #### [facility] , Platelet mean volume (Bld) [Entitic vol] 8.1 fL Normal 6.3-10.7 [facility] Comment on above: Performed By: #### C MP, ESR, CBC #### [place] [address] [place] #### CELIAC #### [facility] , Platelets (Bld) [#/Vol] 296 10*3/uL Normal 150-450 [facility] Comment on above: Performed By: #### C MP, ESR, CBC #### [place] [address] [place] #### CELIAC #### [facility] , RBC (Bld) [#/Vol] 4.25 10*6/uL Normal 3.60-5.00 [facility] Comment on above: Performed By: #### C MP, ESR, CBC #### [place] [address] [place] #### CELIAC #### [facility] , WBC (Bld) [#/Vol] 6.5 10*3/uL Normal 4.5-11.0 [facility] Comment on above: Performed By: #### C MP, ESR, CBC #### [place] [address] [place] #### CELIAC #### [facility] , Comprehensive Metabolic Pane garrison 05-10-2021 Albumin [Mass/Vol] 4.3 g/dL Normal 3.2-5.5 [facility] Comment on above: Performed By: #### C MP, ESR, CBC #### [facility] [address] [place] [address] [place] #### CELIAC #### [facility] , Albumin/Globulin [Mass ratio] 1.5 {ratio} Normal [facility] Comment on above: Performed By: #### C MP, ESR, CBC #### [facility] [address] [place] [address] [place] #### CELIAC #### [facility] , ALP [Catalytic activity/Vol] 34 U/L Normal 32-92 [facility] Comment on above: Performed By: #### C MP, ESR, CBC #### [facility] [address] [place] [address] [place] #### CELIAC #### [facility] , ALT [Catalytic activity/Vol] 11 U/L Normal 10-60 [facility] Comment on above: Performed By: #### C MP, ESR, CBC #### [facility] [address] [place] [address] [place] #### CELIAC #### [facility] , AST [Catalytic activity/Vol] 20 U/L Normal 10-42 [facility] Comment on above: Performed By: #### C MP, ESR, CBC #### [facility] [address] [place] [address] [place] #### CELIAC #### [facility] , Bilirubin [Mass/Vol] 0.7 mg/dL Normal 0.3-1.2 [facility] Comment on above: Performed By: #### C MP, ESR, CBC #### [facility] [address] [place] [address] [place] #### CELIAC #### [facility] , Calcium [Mass/Vol] 9.1 mg/dL Normal 8.2-10.2 [facility] Comment on above: Performed By: #### C MP, ESR, CBC #### [address] #### CELIAC #### [facility] , Chloride [Moles/Vol] 107 mmol/L Normal 95-114 [facility] Comment on above: Performed By: #### C MP, ESR, CBC #### [address] #### CELIAC #### [facility] , CO2 [Moles/Vol] 23.3 mmol/L Normal 22.0-30.0 [facility] Comment on above: Performed By: #### C MP, ESR, CBC #### [address] #### CELIAC #### [facility] , Creatinine [Mass/Vol] 0.66 mg/dL Normal 0.44-1.03 [facility] Comment on above: Performed By: #### C MP, ESR, CBC #### [address] #### CELIAC #### [facility] , Creatinine Clr Calc Pharmacy 99.31 [facility] Comment on above: Result Comment: PERF ORMED BY: [place] [address] PATHOLOGIST LITIGATOR MINA RUIZ M.D. Performed By: #### C MP, ESR, CBC #### [place] [address] [place] #### CELIAC #### [facility] , Estimated GFR ( Emely > 60 [facility] Comment on above: Result Comment: GFR estimated reference range: According to KDOQI guidelines, <60 ml/min/1.73m2 is sufficient to diagnose a patient with chronic kidney disease. Performed By: #### C MP, ESR, CBC #### [place] [address] [place] #### CELIAC #### [facility] , Estimated GFR (Non- Am > 60 Normal [facility] Comment on above: Performed By: #### C MP, ESR, CBC #### [place] [address] [place] #### CELIAC #### [facility] , Globulin (S) [Mass/Vol] 2.9 g/dL Normal [facility] Comment on above: Performed By: #### C MP, ESR, CBC #### [place] [address] [place] #### CELIAC #### [facility] , Glucose [Mass/Vol] 80 mg/dL Normal 70-100 [facility] Comment on above: Result Comment: [facility] Glucose Reference Range is dependent on time and content of last meal. Glucose of more than 200 mg/dL in a nonstressed, ambulatory subject supports the diagnosis of Diabetes Mellitus. ADA recommended reference range Performed By: #### C MP, ESR, CBC #### [place] [address] [place] #### CELIAC #### [facility] , Potassium [Moles/Vol] 4.4 mmol/L Normal 3.5-5.1 [facility] Comment on above: Performed By: #### C MP, ESR, CBC #### [facility] [address] [place] [address] [place] #### CELIAC #### [facility] , Protein [Mass/Vol] 7.2 g/dL Normal 6.1-7.9 [facility] Comment on above: Performed By: #### C MP, ESR, CBC #### [place] [address] [place] #### CELIAC #### [facility] , Sodium [Moles/Vol] 140 mmol/L Normal 136-146 [facility] Comment on above: Performed By: #### C MP, ESR, CBC #### [facility] [address] [place] [address] [place] #### CELIAC #### [facility] , Urea nitrogen [Mass/Vol] 6 mg/dL Low 9-23 [facility] Comment on above: Performed By: #### C MP, ESR, CBC #### [facility] [address] [place] [address] #### CELIAC #### [facility] , Erythrocyte Sedimentation Ra nico 05-10-2021 ESR (Bld) [Velocity] 11 mm/h Normal 0-19 [facility] Comment on above: Result Comment: PERF ORMED BY: [place] [address] PATHOLOGIST LITIGATOR MINA RUIZ M.D. Performed By: #### C MP, ESR, CBC #### [address] #### CELIAC #### [facility] , HCG,Urineon 05-10-2021 Beta HCG ( test) Ql (U) Negative Normal [facility] Comment on above: Result Comment: PERF ORMED BY: [place] [address] PATHOLOGIST LITIGATOR MINA RUIZ M.D. Performed By: #### U HCG #### [address] COVID-19 Antigenon 1 COVID-19 [facility] [...] context of a patient's recent exposures, history Katarzyna Disclaimer and the presence of clinical signs and symptoms Katarzyna Disclaimer consistent with COVID-19. COVID19 Blank Space Katarzyna Disclaimer The Katarzyna SARS Antigen BREANA does not differentiate Katarzyna Disclaimer between SARS-CoV and SARS-CoV-2. COVID19 Blank Space Katarzyna Disclaimer This test was developed and its performance Katarzyna Disclaimer characteristic determined by [employer] and Katarzyna Disclaimer validated at [facility]. This Katarzyna Disclaimer test has not [...] Emergency Use Authorization for Coronavirus Katarzyna Disclaimer isease2019 during the Public Health Emergency) Katarzyna Disclaimer [...] is terminated or revoked sooner. PERFORMED BY: [place] [address] PATHOLOGIST LITIGATOR MINA RUIZ M.D. Normal [facility] Comment on above: Performed By: #### S DRAKE COVID-19 KATARZYNA #### [facility] [address] [place] [address] Katarzyna Ag Negativeon 05-08-20 21 Katarzyna Ag Negative Negative Normal Negative [facility] Comment on above: Result Comment: This is a duplicate Katarzyna SARS Antigen (BREANA) result to be used for statistical tracking purpose only. PERFORMED BY: [place] [address] PATHOLOGIST LITIGATOR MINA RUIZ M.D. Performed By: #### S DRAKE COVID-19 KATARZYNA #### [facility] [address] [place] [address] ALCOHOLon 07-15-2018 Ethanol mass conc 101.0 mg/dL Normal [facility] Comment on above: Result Comment: Divi de by 1000 to convert mg/dL to percent. Example: 100mg/dL = 0.1%. Performed By: #### 2 0621 ####[facility] [place] [address], [facility] CBC W/DIFFon 07-15-2018 ABS BASOPHILS 0.1 10*3/uL Normal 0.0-0.[address] [facility] Comment on above: Performed By: #### 5 0103 ####[facility] [place] [address], [facility] ABS IMM GRANS 0.0 10*3/uL Normal 0.0-0.[address] [facility] Comment on above: Performed By: #### 5 0103 ####[facility] ABS NEUTROPHILS 4.6 10*3/uL Normal 1.6-7.6 The [facility] Comment on above: Performed By: #### 5 0103 ####[facility] Basophils Auto #/vol (Bld) 0.6 % Normal 0.0-1.0 [facility] Comment on above: Performed By: #### 5 3 ####[facility] Eosinophils Auto #/vol (Bld) 0.2 10*3/uL Normal 0.0-0.5 [facility] Comment on above: Performed By: #### 5 0103 ####[facility] [facility].[address] Eosinophils/100 WBC Auto (Bld) 1.8 % Normal 0.0-6.0 [facility] Comment on above: Performed By: #### 5 3 ####[facility] [facility].[address] Erythrocyte distribution width Auto Ratio (RBC) 12.8 % Normal 11.5-15.0 [facility] Comment on above: Performed By: #### 5 3 ####[facility] Hematocrit Auto Volume Fraction (Bld) 41.0 % Normal 36.0-45.0 [facility] Comment on above: Performed By: #### 5 3 ####[facility] Hemoglobin mass conc (Bld) 13.8 g/dL Normal 12.0-15.0 [facility] Comment on above: Performed By: #### 5 0103 ####[facility] IMMATURE GRANS 0.3 % Normal 0.0-1.0 [facility] Comment on above: Performed By: #### 5 0103 ####[facility] Lymphocytes Auto #/vol (Bld) 3.8 10*3/uL Normal 1.2-4.0 [facility] Comment on above: Performed By: #### 5 3 ####[place] [id number] [address] Lymphocytes/100 WBC Auto (Bld) 40.9 % Normal 20.0-45.0 [facility] Comment on above: Performed By: #### 5 3 ####[facility] MCH Auto Entitic mass (RBC) 32.5 pg Normal 27.0-33.0 [facility] Comment on above: Performed By: #### 5 3 ####[facility] MCHC Auto mass conc (RBC) 33.7 g/dL Normal 32.0-35.0 [facility] Comment on above: Performed By: #### 5 3 ####[facility] MCV Auto Entitic volume (RBC) 96.5 fL Normal 82.0-98.0 [facility] Comment on above: Performed By: #### 5 3 ####[facility] Monocytes Auto #/vol (Bld) 0.7 10*3/uL Normal 0.1-1.0 [facility] Comment on above: Performed By: #### 5 102 ####[facility] [facility] [place] [address], [facility] MONOS 7.0 % Normal 5.0-12.0 [facility] Comment on above: Performed By: #### 5 3 ####[facility] [facility].[address] Neutrophils/100 WBC Auto (Bld) 49.4 % Normal 40.0-72.0 [facility] Comment on above: Performed By: #### 102 ####[facility] [facility].[address] Nucleated RBC/100 WBC Ratio (Bld) 0 % Normal 0-0 [facility] Comment on above: Performed By: #### 102 ####[facility] [facility].[address] PLAT CNT 294 10*3/uL Normal 150-400 [facility] Comment on above: Performed By: #### 102 ####[facility] [facility].[address] RBC Auto #/vol (Bld) 4.25 10*6/uL Normal 3.80-5.00 [facility] Comment on above: Performed By: #### 102 ####[facility] [facility].[address] WBC Auto #/vol (Bld) 9.30 10*3/uL Normal 4.00-10.60 [facility] Comment on above: Performed By: #### 102 ####[facility] [facility].[address] COMP METABOLIC PANELon 07-15 Albumin mass conc 4.3 g/dL Normal 3.5-5.7 [facility] Comment on above: Performed By: #### 0 0121 ####[facility] [place] [address], [facility] ALKALINE PHOSPH 36 IU/L Normal 34-104 The [facility] Comment on above: Performed By: #### 0 0121 ####[facility] [place] [address], [facility] ALT enzyme act/vol 12 U/L Normal 7-52 [facility] Comment on above: Performed By: #### 0 0121 ####[facility] [facility] [place] [address], [facility] AST enzyme act/vol 21 U/L Normal 13-39 [facility] Comment on above: Performed By: #### 0 0121 ####[facility] [facility] [place] [address], [facility] Bilirubin mass conc 0.3 mg/dL Normal 0.3-1.0 The [facility] Comment on above: Performed By: #### 0 0121 ####[facility] [place] [address], [facility] Calcium mass conc 9.0 mg/dL Normal 8.6-10.3 The [facility] Comment on above: Performed By: #### 0 0121 ####[facility] [place] [address], [facility] Chloride molar conc 105 mmol/L Normal 98-107 The [facility] Comment on above: Performed By: #### 0 0121 ####[facility] [facility] [place] [address], [facility] CO2 molar conc 26 mmol/L Normal 21-[address] [facility] Comment on above: Performed By: #### 0 0121 ####[facility] [place] [address], [facility] Creatinine mass conc 0.61 mg/dL Normal 0.60-1.20 [facility] Comment on above: Performed By: #### 0 0121 ####[facility] [place] [address], [facility] GFR/1.73 sq M predicted among blacks MDRD vol rate/area (S/P/Bld) mL/min/{1.73_m2} Normal >60 The [facility] Comment on above: Performed By: #### 0 0121 ####[facility] [place] [address], [facility] GFR/1.73 sq M predicted among non-blacks MDRD vol rate/area (S/P/Bld) mL/min/{1.73_m2} Normal >60 [facility] Comment on above: Performed By: #### 0 0121 ####[facility] [place] [address], [facility] Glucose mass conc 88 mg/dL Normal 70-100 The [facility] Comment on above: Performed By: #### 0 0121 ####[facility] [place] [address], [facility] Potassium molar conc 3.7 mmol/L Normal 3.5-5.1 [facility] Comment on above: Performed By: #### 0 0121 ####[facility] [place] [address], [facility] Protein mass conc 6.8 g/dL Normal 6.0-8.3 [facility] Comment on above: Performed By: #### 0 0121 ####[facility] [place] [address], [facility] Sodium molar conc 138 mmol/L Normal 136-145 [facility] Comment on above: Performed By: #### 0 0121 ####[facility] [facility].[address] Urea nitrogen mass conc 6 mg/dL Low 7-25 [facility] Comment on above: Performed By: #### 0 0121 ####[facility] [facility].[address] POC URINE PREGNANCYon 2017 HCG.beta subunit ( test) Ql (U) Negative Normal NEGATIVE [facility] Comment on above: Result Comment: Perf ormed in ED Performed By: #### 8 4140 ####[facility] [facility].[address] TOX PANEL URINEon 07-15-2018 50 THC Positive Abnormal NEGATIVE [facility] Comment on above: Performed By: #### 3 1079 ####[facility] [facility].[address] BARBITURATES Negative Normal NEGATIVE The [facility] Comment on above: Performed By: #### 3 1079 ####[facility] [place] [address], [facility] BENZODIAZEPINES Negative Normal NEGATIVE The [facility] Comment on above: Performed By: #### 3 1079 ####[facility] [place] [address], [facility] COCAINE Negative Normal NEGATIVE [facility] Comment on above: Performed By: #### 3 1079 ####[facility] [place] [address], [facility] METHADONE Negative Normal NEGATIVE [facility] Comment on above: Performed By: #### 3 1079 ####[facility] [place] [address], [facility] MONO AMPHET Negative Normal NEGATIVE [facility] Comment on above: Performed By: #### 3 1079 ####[facility] [place] [address], [place] OPIATES Positive Abnormal NEGATIVE [facility] Comment on above: Performed By: #### 3 1079 ####[facility] [place] [address], [place] PHENCYCLIDINE Negative Normal NEGATIVE The [facility] Comment on above: Performed By: #### 3 1079 ####[facility] [place] [address], [place] Protein mass conc Negative Normal NEGATIVE The [facility] Comment on above: Performed By: #### 3 1079 ####[facility] [facility] [place] [address], [facility] Order Comment: Crite mayi for reflexing a culture was not met. Please call the lab [id number] within 24 hours of collection time if culture is needed Performed By: #### 3 [id number] ####[facility] [place] [address], [place] TRICYCLICS Negative Normal NEGATIVE [facility] Comment on above: Performed By: #### 3 [id number] ####[facility] [place] [address], [place] URINALYSIS REFLEXon 07-15-20 18 APPEARANCE CLEAR Normal CLEAR [facility] Comment on above: Order Comment: Crite mayi for reflexing a culture was not met. Please call the lab [id number] within 24 hours of collection time if culture is needed Performed By: #### 3 [id number] ####[facility] [place] [address], [place] BILIRUBIN Negative Normal NEGATIVE [facility] Comment on above: Order Comment: Crite mayi for reflexing a culture was not met. Please call the lab [id number] within 24 hours of collection time if culture is needed Performed By: #### 3 [id number] ####[facility] [place] [address], [facility] BLOOD Negative Normal NEGATIVE [facility] Comment on above: Order Comment: Crite mayi for reflexing a culture was not met. Please call the lab [id number] within 24 hours of collection time if culture is needed Performed By: #### 3 [id number] ####[facility] [place] [address], [facility] COLOR STRAW Abnormal YELLOW [facility] Comment on above: Order Comment: Crite mayi for reflexing a culture was not met. Please call the lab [email or web address] within 24 hours of collection time if culture is needed Performed By: #### 3 [id number] ####[facility] [facility] [place] [address], [facility] GLUCOSE Negative Normal NEGATIVE [facility] Comment on above: Order Comment: Crite mayi for reflexing a culture was not met. Please call the lab [id number] within 24 hours of collection time if culture is needed Performed By: #### 3 [id number] ####[facility] [facility] [place] [address], [facility] KETONE Negative Normal NEGATIVE [facility] Comment on above: Order Comment: Crite mayi for reflexing a culture was not met. Please call the lab [email or web address] within 24 hours of collection time if culture is needed Performed By: #### 3 [id number] ####[facility] [facility] [place] [address], [facility] LEUK RAUL Negative Normal NEGATIVE [facility] Comment on above: Order Comment: Crite mayi for reflexing a culture was not met. Please call the lab [id number] within 24 hours of collection time if culture is needed Performed By: #### 3 [id number] ####[facility] [facility] [place] [address], [facility] MICRO NOT DONE negative chemical reactions unless requested in original order Normal [facility] Comment on above: Order Comment: Crite mayi for reflexing a culture was not met. Please call the lab [id number] within 24 hours of collection time if culture is needed Performed By: #### 3 [id number] ####[facility] [facility] [place] [address], [facility] NITRITE Negative Normal NEGATIVE [facility] Comment on above: Order Comment: Crite mayi for reflexing a culture was not met. Please call the lab [id number] within 24 hours of collection time if culture is needed Performed By: #### 3 [id number] ####[facility] [place] 6.0 Normal 5.0-8.0 [facility] Comment on above: Order Comment: Crite mayi for reflexing a culture was not met. Please call the lab [id number] within 24 hours of collection time if culture is needed Performed By: #### 3 [id number] ####[facility] [facility].[address] SPEC GRAV 1.002 Low 1.015-1.020 [facility] Comment on above: Order Comment: Crite mayi for reflexing a culture was not met. Please call the lab [id number] within 24 hours of collection time if culture is needed Performed By: #### 3 [id number] ####[address] Vital Signs Date Time Vital Sign Value Performing Clinician Facility 05-25-2025 08:190400 Body height 162.6 cm Jen Wisdom MD Work Phone: [facility] 05-25-2025 08:19-0400 Body mass index (BMI) [Ratio] 21.15 kg/m2 Jen Wisdom MD Work Phone: [facility] 05-25-2025 08:040 Body weight 55.88 kg Jen Wisdom MD Work Phone: [facility] 05-25-2025 08:19-0400 Diastolic blood pressure 70 mm[Hg] Jen Wisdom MD Work Phone: [facility] 05-25-2025 08:19-0400 Heart rate 89 /min Jen Wisdom MD Work Phone: [facility] 05-25-2025 08:19-0400 Systolic blood pressure 99 mm[Hg] Jen Wisdom MD Work Phone: [facility] 05-12-2025 09:02-0400 Body height 162.6 cm Maikel Brown DPM Work Phone: [facility] 05-12-2025 09:02-0400 Body mass index (BMI) [Ratio] 20.6 kg/m2 Maikel Brown DPM Work Phone: [facility] 05-12-2025 09:02-0400 Body weight 54.43 kg Maikel Radu DPM Work Phone: [facility] 05-12-2025 09:02-0400 Respiratory rate 18 /min Maikel Brown DPM Work Phone: [facility] 04-27-2025 12:52-0400 Body height 162.56 cm Amador Asif DMD Work Phone: [facility] 04-27-2025 12:52-0400 Body mass index (BMI) [Ratio] 21.08 kg/m2 Amador Asif DMD Work Phone: [facility] 04-27-2025 12:52-0400 Body surface area Derived from formula 1.59 m2 Amador Perezani DMD Work Phone: [facility] 04-27-2025 12:52-0400 Body temperature 97.9 [degF] Amador Perezani DMD Work Phone: [facility] 04-27-2025 12:52-0400 Body weight 55.7 kg Amador Asif DMD Work Phone: [facility] 04-27-2025 12:52-0400 Diastolic blood pressure 78 mm[Hg] Amador Asif DMD Work Phone: [facility] 04-27-2025 12:52-0400 Systolic blood pressure 100 mm[Hg] Amador Asif DMD Work Phone: [facility] 04-06-2025 08:44-0400 Body height 162.6 cm Joce Mancera MD Work Phone: [facility] 04-06-2025 08:44-0400 Body mass index (BMI) [Ratio] 20.6 kg/m2 Joce Mancera MD Work Phone: [facility] 04-06-2025 08:44-0400 Body weight 54.43 kg Joce Mancera MD Work Phone: [facility] 04-06-2025 08:44-0400 Diastolic blood pressure 70 mm[Hg] Joce Mancera MD Work Phone: [facility] 04-06-2025 08:44-0400 Heart rate 81 /min Joce Mancera MD Work Phone: [facility] 04-06-2025 08:44-0400 SaO2% (BldA) [Mass fraction] 95 % Joce Mancera MD Work Phone: [facility] 04-06-2025 08:44-0400 Systolic blood pressure 118 mm[Hg] Joce Mancera MD Work Phone: [facility] 02-23-2025 08:25-0400 Body height 162.6 cm Jen Wisdom MD Work Phone: [facility] 02-23-2025 08:25-0400 Body mass index (BMI) [Ratio] 21.63 kg/m2 Jen Wisdom MD Work Phone: [facility] 02-23-2025 08:25-0400 Body weight 57.15 kg Jen Wisdom MD Work Phone: [facility] 02-23-2025 08:25-0400 Diastolic blood pressure 78 mm[Hg] Jen Wisdom MD Work Phone: [facility] 02-23-2025 08:25-0400 Systolic blood pressure 112 mm[Hg] Jen Wisdom MD Work Phone: [facility] 02-09-2025 10:52-0400 Body height 162.6 cm Joce Mancera MD Work Phone: [facility] 02-09-2025 10:52-0400 Body mass index (BMI) [Ratio] 21.11 kg/m2 Joce Mancera MD Work Phone: [facility] 02-09-2025 10:52-0400 Body weight 55.79 kg Joce Macnera MD Work Phone: [facility] 02-09-2025 10:52-0400 Diastolic blood pressure 74 mm[Hg] Joce Mancera MD Work Phone: [facility] 02-09-2025 10:52-0400 Heart rate 98 /min Joce Mancera MD Work Phone: [facility] 02-09-2025 10:52-0400 SaO2% (BldA) [Mass fraction] 97 % Joce Mancera MD Work Phone: [facility] 02-09-2025 10:52-0400 Systolic blood pressure 126 mm[Hg] Joce Mancera MD Work Phone: [facility] 12-29-2024 13:36-0500 Body height 162.6 cm Yelena Mclain GEOCHEMISTRY TEACHER Work Phone: [facility] 12-29-2024 13:36-0500 Body mass index (BMI) [Ratio] 22.31 kg/m2 Yelena Mclain GEOCHEMISTRY TEACHER Work Phone: [facility] 12-29-2024 13:36-0500 Body weight 58.97 kg Yelena Mclain GEOCHEMISTRY TEACHER Work Phone: [facility] 12-29-2024 13:36-0500 Diastolic blood pressure 68 mm[Hg] Yelena Mclain GEOCHEMISTRY TEACHER Work Phone: [facility] 12-29-2024 13:36-0500 Heart rate 70 /min Yelena Mclain GEOCHEMISTRY TEACHER Work Phone: [facility] 12-29-2024 13:36-0500 Respiratory rate 16 /min Yelena Mclain GEOCHEMISTRY TEACHER Work Phone: [facility] 12-29-2024 13:36-0500 SaO2% (BldA) [Mass fraction] 98 % Yelena Mclain GEOCHEMISTRY TEACHER Work Phone: [facility] 12-29-2024 13:36-0500 Systolic blood pressure 118 mm[Hg] Yelena Mclain GEOCHEMISTRY TEACHER Work Phone: [facility] 12-23-2024 09:25-0500 Body height 162.6 cm Joce Mancera MD Work Phone: [facility] 12-23-2024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 mouth at bedtime 30 tablet 2 [DISCONTINUED] cyclobenzaprine (Flexeril) 10 MG tablet Take 1 tablet (10 mg) by mouth in the morning and at noon PRN 60 tablet 0 [DISCONTINUED] HYDROcodone-acetaminophen (Hamilton) 10-325 MG tablet Take 2 tablets by mouth every 4 (four) hours if needed for severe pain for up to 15 days 60 tablet 0 No current facility-administered medications on file prior to visit. I have reviewed and reconciled the history and medication list with the patient today. Allergies Allergen Reactions Penicillin G Other Reaction(s): Unknown Penicillins Social History Tobacco Use Smoking status: Every Day Current packs/day: 1.00 Types: Cigarettes Smokeless tobacco: Never Vaping Use Vaping status: Unknown Substance Use Topics Alcohol use: Not Currently [...] MASS EXCISION TRIGGER POINT INJECTION Visit Vitals LMP (LMP Unknown) OB Status Hysterectomy Smoking Status Every Day Review of Systems Constitutional: Negative. HENT: Negative. Eyes: Negative. Respiratory: Negative. Gastrointestinal: Negative. Genitourinary: Negative. Musculoskeletal: Positive for arthralgias, back pain, gait problem and myalgias. Skin: Negative. Psychiatric/Behavioral: The patient is nervous/anxious. Hematological: Negative. Endocrine: Negative. Allergic/Immunologic: Negative. Objective Physical Exam Constitutional: Appearance: Normal appearance. HENT: Head: Normocephalic and atraumatic. Right Ear: External ear normal. Left Ear: External ear normal. Nose: Nose normal. Mouth/Throat: Mouth: Mucous membranes are moist. Pharynx: Oropharynx is clear. Eyes: Conjunctiva/sclera: Conjunctivae normal. Cardiovascular: Rate and Rhythm: Normal rate and regular rhythm. Pulses: Normal pulses. Heart sounds: Normal heart sounds. Pulmonary: Effort: Pulmonary effort is normal. Breath sounds: Normal breath sounds. Abdominal: Palpations: Abdomen is soft. Musculoskeletal: General: Tenderness (paraspinal muscle spasms at thoracic and lumbar spine) present. Cervical back: Tenderness present. Lymphadenopathy: Cervical: Cervical adenopathy present. Skin: General: Skin is warm and dry. Neurological: General: No focal deficit present. Mental Status: She is alert and oriented to person, place, and time. Psychiatric: Mood and Affect: Mood normal. Behavior: Behavior normal. Thought Content: Thought content normal. Judgment: Judgment normal. Assessment/Plan 1. Thoracic myofascial strain, subsequent encounter (Primary) The pt continues to have complaint of thoracic area pain. She states that the flexeril did not workfor the spasms. Discussed changing her muslce relaxer to robaxin. She is in agreement with this plan. - methocarbamol (Robaxin) 500 MG tablet; Take 1 tablet (500 mg) by mouth every 6 (six) hours if needed for muscle spasms Dispense: 120 tablet; Refill: 0 2. Muscle spasm Discussed use of robaxin and its most common side effects. She is advised to stop the use of flexeril. She continues with therapy and will be seen per neurology on 01/06/25. - methocarbamol (Robaxin) 500 MG tablet; Take 1 tablet (500 mg) by mouth every 6 (six) hours if needed for muscle spasms Dispense: 120 tablet; Refill: 0 3. Acute on chronic low back pain The pt reports that she has not stopped taking the norco at q 4 hrs. She reports not being able to make it to the 6 hour joseph. She reports that she has an appointment with neurology 01/06/25. Hamilton will be continued at q 4 hrs until her appointment on 01/06/25. She is advised to follow up as scheduled following the appointment with neurology. - HYDROcodone-acetaminophen (Hamilton) 10-325 MG tablet; Take 2 tablets by mouth every 4 (four) hours if needed for severe pain for up to 10 days Dispense: 40 tablet; Refill: 0 4. Major depressive disorder, single episode, moderate (HCC) (CMS/HCC) Discussed the use of elavil and its most common side effects. She is advised to take this medication as ordered, if it causes too much drowsiness to decrease the med to HS only. Follow up in 1 month. - amitriptyline (Elavil) 10 MG tablet; Take 3 tablets (30 mg) by mouth in the morning and 3 tablets(30 mg) in the evening and 3 tablets (30 mg) before bedtime. Dispense: 270 tablet; Refill: 0 5. Major depressive disorder, recurrent, moderate (CMS/HCC) No follow-ups on file. documented in this [facility]02-26-2025 Instructions* Patient Instructions* Yelena Mclain NP - 12/29/2024 1:30 PM EST Amitriptyline started. Hamilton continues at q 4 hrs prn until 01/06/25. Methocarbamol is sent today, advised to stop the flexeril. documented in this [facility]02-20-2025 History of Present illness Narrative* Joce Mancera MD - 12/23/2024 9:30 AM EST Images from the original note were not included. HPI Follow-up Additional comments: From fall on ice LBP,neck pain,shoulder pain Last edited by Janessa Holliday LPN on 12/23/2024 9:25 AM. Subjective Patient ID: Marisela Nath is a 44 y.o. female who presents for Follow-up (From fall on ice LBP,neck pain,shoulder pain). Pt completed all xrays and was given results over phone She increased the norco to 2 tabs Q4 hours and is using the lidoderm patches, states she gets a little relief with those but is still having pain --mostly in buttocks and mid back Any movement worsens pain Current Outpatient Medications on File Prior to Visit Medication Sig Dispense Refill betamethasone valerate (Valisone) 0.1 % cream Apply topically 2 (two) times a day. 15 g 0 HYDROcodone-acetaminophen (Hamilton) 10-325 MG tablet Take 2 tablets by mouth every 6 (six) hours if needed for moderate pain (Max of 8 a day) 240 tablet 0 lidocaine (Lidoderm) 5 % patch Apply 1 patch over 12 hours topically Daily as needed for moderate pain Apply to painful area 12 hours per day, remove for 12 hours. 30 patch 2 metFORMIN (Glucophage) 1000 MG tablet TAKE 1 [...] mouth at bedtime 30 tablet 2 [DISCONTINUED] cyclobenzaprine (Flexeril) 10 MG tablet Take 1 tablet (10 mg) by mouth in the morning and at noon PRN 60 tablet 0 [DISCONTINUED] HYDROcodone-acetaminophen (Hamilton) 10-325 MG tablet Take 2 tablets by mouth every 4 (four) hours if needed for severe pain for up to 15 days 60 tablet 0 No current facility-administered medications on file prior to visit. I have reviewed and reconciled the history and medication list with the patient today. Allergies Allergen Reactions Penicillin G Other Reaction(s): Unknown Penicillins Social History Tobacco Use Smoking status: Every Day Current packs/day: 1.00 Types: Cigarettes Smokeless tobacco: Never Vaping Use Vaping status: Unknown Substance Use Topics Alcohol use: Not Currently [...] EXCISION TRIGGER POINT INJECTION Visit Vitals BP 116/70 Pulse 87 Ht 5' 4 Wt 123 lb LMP (LMP Unknown) SpO2 98% BMI 21.11 kg/m OB Status Hysterectomy Smoking Status Every Day BSA 1.59 m Review of Systems Objective Physical Exam Vitals reviewed. HENT: Head: Normocephalic. Comments: Bruising left eye, mild swelling and pain Right Ear: External ear normal. Left Ear: External ear normal. Nose: Nose normal. Eyes: Extraocular Movements: Extraocular movements intact. Conjunctiva/sclera: Conjunctivae normal. Pupils: Pupils are equal, round, and reactive to light. Cardiovascular: Rate and Rhythm: Normal rate and regular rhythm. Heart sounds: Normal heart sounds. Pulmonary: Effort: Pulmonary effort is normal. Breath sounds: Normal breath sounds. Abdominal: Palpations: Abdomen is soft. Musculoskeletal: Cervical back: Tenderness (right side neck tenderness) present. Comments: Left scapula pain, tender to the touch, no bruising, mild swelling, coccyx and lumbar pain, decreased ROM, no bruising but there is mild swelling, cervical neck pain with decreased ROM, no swelling, no bruising Skin: Findings: Bruising present. Neurological: General: No focal deficit present. Mental Status: She is alert and oriented to person, place, and time. Psychiatric: Mood and Affect: Mood normal. Behavior: Behavior normal. Thought Content: Thought content normal. Judgment: Judgment normal. Assessment/Plan Diagnoses and all orders for this visit: Thoracic myofascial strain, subsequent encounter - methylPREDNISolone (Medrol Dospak) 4 MG tablets; Follow schedule on package instructions - Ambulatory referral to Physical Therapy; Future Muscle spasm - cyclobenzaprine (Flexeril) 10 MG tablet; Take 1 tablet (10 mg) by mouth in the morning and 1 tablet (10 mg) in the evening and 1 tablet (10 mg) before bedtime. Do all this for 21 days. PRN. - methylPREDNISolone (Medrol Dospak) 4 MG tablets; Follow schedule on package instructions - Ambulatory referral to Physical Therapy; Future Hypoglycemic syndrome - POCT Glycated hemoglobin, total Acute on chronic low back pain - HYDROcodone-acetaminophen (Hamilton) 10-325 MG tablet; Take 2 tablets by mouth every 6 (six) hours if needed for severe pain Do not start before December 26, 2024. Follow up in about 1 week (around 12/30/2024) for Recheck. documented in this encounterFreeman Health [id number] Telephone encounter Note* Telephone Encounter - SWATHI Torres - 12/17/2024 12:29 PM EST Lidoderm patches sent. [facility] [id number] Miscellaneous Notes* Telephone Encounter - SWATHI Torres - 12/17/2024 12:29 PM EST Lidoderm patches sent. * Telephone Encounter - Janessa Holliday LPN - 12/17/2024 11:30 AM EST Pt notified of xray results * Telephone Encounter - Janessa Holliday LPN - 12/17/2024 11:30 AM EST ----- Message from Yelena Mclain sent at 12/16/2024 5:00 PM EST ----- Please call the pt and notify her that all of her xrays were negative for any fractures or dislocations. Continue current treatment plan and follow up as discussed. * Telephone Encounter - Janessa Holliday LPN - 12/17/2024 11:29 AM EST Pt called back and is also nrequesting rx for lidoderm patch be sent in as well states she had themin past * Telephone Encounter - JOSE ARNOLD - 12/17/2024 11:05 AM EST Patient is calling for her shoulder Xray results, and states the pain medication she was given a few days ago is not helping. documented in this encounterNOSaint Louis University Health Science [id number] Telephone encounter Note* Telephone Encounter - Janessa Holliday LPN - 12/17/2024 11:30 AM EST Pt notified of xray results [facility] [id number] Telephone encounter Note* Telephone Encounter - Janessa Holliday LPN - 12/17/2024 11:30 AM EST ----- Message from Yelena Mclain sent at 12/16/2024 5:00 PM EST ----- Please call the pt and notify her that all of her xrays were negative for any fractures or dislocations. Continue current treatment plan and follow up as discussed. [facility] [id number] Telephone encounter Note* Telephone Encounter - Janessa Holliday LPN - 12/17/2024 11:29 AM EST Pt called back and is also nrequesting rx for lidoderm patch be sent in as well states she had themin past [facility] [id number] Telephone encounter Note* Telephone Encounter - JOSE ARNOLD - 12/17/2024 11:05 AM EST Patient is calling for her shoulder Xray results, and states the pain medication she was given a few days ago is not helping. [facility] [id number] Telephone encounter Note* Telephone Encounter - Shena Peralta LPN - 12/16/2024 1:04 PM EST Pt LM on VM that she was seen yesterday by you and the pain med prescribed is not touching her painand was ?ing if something else could be sent in. She is going for the xray either today or tomorrow. [facility] [id number] Miscellaneous Notes* Telephone Encounter - Shena Peralta LPN - 12/16/2024 1:04 PM EST Pt LM on VM that she was seen yesterday by you and the pain med prescribed is not touching her painand was ?ing if something else could be sent in. She is going for the xray either today or tomorrow. documented in this encounterFreeman Health [id number] History of Present illness Narrative* Yelena Mclain NP - 12/15/2024 2:00 PM EST Images from the original note were not included. Subjective Patient ID: Marisela Nath is a 44 y.o. female who presents for Fall. Marisela presets today for a fall on the ice. She did got to [facility] ER but left due to having a long wait. She says she hit her head with the car door. She then fell on her butt and the tail bone is very painful. She can't sleep and is having lower back pain. Current Outpatient Medications on File Prior to Visit Medication Sig Dispense Refill betamethasone valerate (Valisone) 0.1 % cream Apply topically 2 (two) times a day. 15 g 0 cyclobenzaprine (Flexeril) 10 MG tablet Take 10 mg by mouth in the morning and at noon PRN HYDROcodone-acetaminophen (Hamilton) 10-325 MG tablet Take 2 tablets by [...] packs/day: 1.00 Types: Cigarettes Smokeless tobacco: Never Vaping Use Vaping status: Unknown Substance Use Topics Alcohol use: Not Currently [...] MASS EXCISION TRIGGER POINT INJECTION Visit Vitals LMP (LMP Unknown) OB Status Hysterectomy Smoking Status Every Day Review of Systems Constitutional: Positive for activity change. HENT: Negative. Eyes: Negative. Respiratory: Negative. Cardiovascular: Negative. Gastrointestinal: Negative. Genitourinary: Negative. Musculoskeletal: Positive for arthralgias, back pain, gait problem, joint swelling, myalgias, neck pain and neck stiffness. Skin: Bruising left posterior wrist and at the left eye, mild swelling and pain Neurological: Positive for headaches. Psychiatric/Behavioral: Negative. Hematological: Negative. Endocrine: Negative. Allergic/Immunologic: Negative. Objective Physical Exam Vitals reviewed. HENT: Head: Normocephalic. Comments: Bruising left eye, mild swelling and pain Right Ear: External ear normal. Left Ear: External ear normal. Nose: Nose normal. Eyes: Extraocular Movements: Extraocular movements intact. Conjunctiva/sclera: Conjunctivae normal. Pupils: Pupils are equal, round, and reactive to light. Cardiovascular: Rate and Rhythm: Normal rate and regular rhythm. Heart sounds: Normal heart sounds. Pulmonary: Effort: Pulmonary effort is normal. Breath sounds: Normal breath sounds. Abdominal: Palpations: Abdomen is soft. Musculoskeletal: Cervical back: Tenderness (right side neck tenderness) present. Comments: Left scapula pain, tender to the touch, no bruising, mild swelling, coccyx and lumbar pain, decreased ROM, no bruising but there is mild swelling, cervical neck pain with decreased ROM, no swelling, no bruising Skin: Findings: Bruising present. Neurological: General: No focal deficit present. Mental Status: She is alert and oriented to person, place, and time. Psychiatric: Mood and Affect: Mood normal. Behavior: Behavior normal. Thought Content: Thought content normal. Judgment: Judgment normal. Assessment/Plan 1. Fall on ice (Primary) The patient presents today following a fall 4 days ago. She reports that she fell hard on ice and elizabeth her whole back. She now has continuous pain at her coccyx, low back, the right side of her neck, left shoulder/scapula, left wrist. She went to the ER but did not wait the 2 hours to be seen andwent home. She has been using ICE, resting and it has only worsened. 2. Contusion of coccyx, initial encounter Mild swelling is noted at the coccyx, she is advised to use ice to the are, we will obtain an xray. 3. Pain in the coccyx - XR sacrum coccyx 2+ views; Future 4. Acute on chronic low back pain This pt has chronic pain and has been taking norco q 6 hrs as needed. We will increase this over the next 15 days to q 4 hrs prn. A short supply of norco is sent for the next 15 days. She is advised that we will have her follow up in 2 weeks to see how she is doing. Plan is to discuss her medication regimen with Dr. Mancera, she is to follow up with Dr. Wisdom in neurology as scheduled, get the xrays completed. To discuss results at next visit. - HYDROcodone-acetaminophen (Hamilton) 10-325 MG tablet; Take 2 tablets by mouth every 4 (four) hours if needed for severe pain for up to 15 days Dispense: 60 tablet; Refill: 0 5. Left lumbar pain - XR lumbar spine 2 or 3 views; Future 6. Acute pain of left shoulder - XR shoulder 2+ views left; Future 7. Neck pain - XR cervical spine 2 or 3 views; Future 8. Facial pain - XR facial bones 3+ views; Future 9. Muscle spasm - cyclobenzaprine (Flexeril) 10 MG tablet; Take 1 tablet (10 mg) by mouth in the morning and at noon PRN Dispense: 60 tablet; Refill: 0 No follow-ups on file. documented in this [facility]02-12-2025 Instructions* Patient Instructions* Yelena Mclain NP - 12/15/2024 2:00 PM EST Increased norco to q 4 hrs prn x 15 days, then she will return to previous dose. Follow up in 2 weeks. documented in this [facility]01-24-2025 Telephone encounter Note* Telephone Encounter - SWATHI Torres - 11/26/2024 12:02 PM EST OARRS reviewed, Rx sent into patient's pharmacy. [facility] [id number] Miscellaneous Notes* Telephone Encounter - SWATHI Torres - 11/26/2024 12:02 PM EST OARRS reviewed, Rx sent into patient's pharmacy. documented in this encounterFreeman Health [id number] History of Present illness Narrative* Joce Mancera MD - 11/10/2024 9:45 AM EST Subjective Patient ID: Marisela Nath is a [...] the morning and at noon PRN HYDROcodone-acetaminophen (Hamilton) 10-325 MG tablet Take 2 tablets by [...] patient surviving, sequela (CMS/HCC) Focal epilepsy (CMS/HCC) Follow up in about 3 months (around 02/08/2025) for Routine F/U, Test/Lab Review, Controlled Med Review. documented in this encounterFreeman Health [id number] Telephone encounter Note* Telephone Encounter - SWATHI Torres - 09/29/2024 8:44 AM EST OARRS reviewed, Rx sent into patient's pharmacy. [facility] [id number] Miscellaneous Notes* Telephone Encounter - SWATHI Torres - 09/29/2024 8:44 AM EST OARRS reviewed, Rx sent into patient's pharmacy. * Telephone Encounter - Valentina Edgar - 09/28/2024 1:07 PM EST HYDROcodone-acetaminophen (Hamilton) 10-325 MG tablet to [facility] [place] documented in this encounterFreeman Health [id number] Telephone encounter Note* Telephone Encounter - Valentina Edgar - 09/28/2024 1:07 PM EST HYDROcodone-acetaminophen (Hamilton) 10-325 MG tablet to Drug [place] [facility] [id number] Telephone encounter Note* Telephone Encounter - WSATHI Torres - 09/27/2024 1:06 PM EST Metformin sent. [facility] [id number] Miscellaneous Notes* Telephone Encounter - SWATHI Torres - 09/27/2024 1:06 PM EST Metformin sent. documented in this encounterFreeman Health [id number] Telephone encounter Note* Telephone Encounter - Joce Mancera MD - 09/02/2024 1:56 PM EDT Sent. [facility] [id number] Miscellaneous Notes* Telephone Encounter - Joce Mancera MD - 09/02/2024 1:56 PM EDT Sent. documented in this encounterFreeman Health [id number] History of Present illness Narrative* SWATHI Torres - 08/09/2024 2:30 PM EDT Images from the original note were not [...] the morning and at noon PRN HYDROcodone-acetaminophen (Hamilton) 10-325 MG tablet Take 2 tablets by [...] at bedtime 30 tablet 2 [DISCONTINUED] HYDROcodone-acetaminophen (Hamilton) 10-325 MG tablet Take 2 tablets by [...] least every three months for monitoring. At eachfollow up visit I will reassess the patient's [...] patient to cut back and soon quit smoking.Health risks of smoking, and benefits of quitting reviewed with the patient. Pt states she is goingto call [phone] and look into options to quit smoking. States she has eight grand kids she wants to be around and healthy for, advised pt that is excellent. Chronic low back pain Stable on Hamilton and Flexeril. Will continue to monitor. Follow up in about 3 months (around 11/09/2024) for Medication Follow Up. documented in this encounterFreeman Health [id number] History of Present illness Narrative* Xavier Tobin, - 07/08/2024 1:00 PM EDT Images from the original note were not [...] and at noon., Disp: , Rfl: HYDROcodone-acetaminophen (Hamilton) 10-325 MG tablet, Take 2 tablets by [...] ONCE DAILY AT BEDTIME, Disp: 30 tablet, Rfl:2 Past Medical History: Diagnosis Date Allergic Anxiety [...] on R has since resolved but she isconcerned pain will worsen. She c/o trouble initiating urinary stream at night. She has been on Hamilton 10/325 8 tabs daily since May of 2000 due to chronic pain after an accident. Advised Hamilton couldcause urinary retention and constipation. No mass palpable on exam. Will order U/S to further evaluate with OV to discuss. Entered by Valentina Jerome LPN acting as scribe for Dr. Xavier Tobin. Signature: Valentina Jerome LPN The documentation recorded by the scribe accurately reflects the service(s) I personally performed and the decisions I made. Signature: Xavier Tobin DO documented in this encounterFreeman Health [id number] Telephone encounter Note* Telephone Encounter - SWATHI Torres - 12/16/2023 12:52 PM EST OARRS reviewed, Rx sent into patient's pharmacy. [facility] [id number] Miscellaneous Notes* Telephone Encounter - SWATHI Torres - 12/16/2023 12:52 PM EST OARRS reviewed, Rx sent into patient's pharmacy. documented in this encounterNOAK HealthcareConsult note* Clinical Note Date No Information [facility] Work Phone: Discharge summary* Clinical Note Date No Information [facility] Work Phone: Evaluation note* Diagnosis Insomnia, unspecified type documented in [...] with right-sided sciatica documented in this encounter [facility]* [...] in this encounter [facility]Evaluation note* Diagnosis Fall on ice- Primary Contusion of coccyx, initial encounter Pain in the coccyx Other disorder of coccyx Acute on chronic low back pain Left lumbar pain Lumbago Acute pain of left shoulder Neck pain Cervicalgia Facial pain Headache Muscle spasm Spasm of muscle documented in this encounter [facility]* Diagnosis Acute on chronic low back pain- Primary documented in this encounter [facility]* Diagnosis Thoracic myofascial strain, subsequent encounter- Primary Muscle spasm Spasm of muscle Hypoglycemic syndrome Hypoglycemia, unspecified Acute on chronic low back pain documented in this encounter [facility]* Diagnosis Thoracic myofascial strain, subsequent encounter- Primary Muscle spasm Spasm of muscle Acute on chronic low back pain Major depressive disorder, single episode, moderate (HCC) (CMS/HCC) Major depressive disorder, single episode, moderate Major depressive disorder, recurrent, moderate (CMS/HCC) Major depressive disorder, recurrent episode, moderate documented in this encounter [facility]* Diagnosis Muscle spasm- Primary Spasm of muscle Thoracic myofascial strain, subsequent encounter documented in this encounter [facility]* Diagnosis Muscle spasm- Primary Spasm of muscle Thoracic myofascial strain, subsequent encounter documented in this encounter [facility]* Diagnosis Muscle spasm- Primary Spasm of muscle Thoracic myofascial strain, subsequent encounter documented in this encounter [facility]* Diagnosis Seizure disorder ([facility]/HCC) Unspecified epilepsy without mention of intractable epilepsy Moderate episode of recurrent major depressive disorder ([facility]/HCC) Tinnitus of both ears Unspecified tinnitus Visual disturbance Unspecified visual disturbance Palpitations documented in this encounter [facility]* Diagnosis Radiculopathy of sacral region- Primary Focal epilepsy ([facility]/HCC) Seizure disorder (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 documented in this encounter [facility]* Diagnosis Acute on chronic low back pain documented in this encounter [facility]* Diagnosis Cervical radiculopathy- Primary Brachial neuritis or radiculitis nos Lumbar radiculopathy Thoracic or lumbosacral neuritis or radiculitis, unspecified 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 surviving, sequela (CMS/HCC) documented in this encounter [facility]* Diagnosis Cervical radiculopathy- Primary Brachial neuritis or radiculitis nos Lumbar radiculopathy Thoracic or lumbosacral neuritis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
--- NOTE | 2025-05-30 07:45 | ECG_ITS ---
[facility] Test Date: 2025-05-30 Pat Name: GEGE POPE Department: Room: - Gender: Female Ambulatory Nurse: : [id number] Requested By: SWETHA CLEMENS Order Number: [id number] Reading MD: JOVITA FERNANDEZ M.D. Measurements Intervals [place] Rate: 64 P: 75 MO: 146 QRS: 93 QRSD: 83 T: 81 QT: 384 QTc: 396 Interpretive Statements SINUS RHYTHM BORDERLINE RIGHT AXIS DEVIATION [QRS AXIS > 90] Borderline ECG Compared to ECG 03/30/2019 06:54:52 No significant changes Electronically Signed On 05-30-2025 9:05:14 EDT by JOVITA FERNANDEZ M.D.
[2025-05-30 08:17] LABS: Anion Gap 11.3; Blood Urea Nitrogen 8.0 mg/dL (7.0-18.0); Calcium 9.2 mg/dL (8.5-10.1); Carbon Dioxide 31.2 mmol/L (21.0-32.0); Chloride 105 mmol/L (98-107); Estimated GFR (African America >60 (>=60 mL/min/1.73m^2); Estimated GFR (Non-African Ame >60 (>=60 mL/min/1.73m^2); Glucose 92 mg/dL (74-106); Potassium 4.5 mmol/L (3.5-5.1); Sodium 143 mmol/L (136-145)
[2025-05-30 08:46] LABS: Hematocrit 42.5 % (36.0-48.0); Hemoglobin 14.1 g/dL (12.0-16.0); Immature Granulocytes Abs Auto 0.01 10^3/uL (0.00-0.03); Immature Granulocytes Pct Auto 0.2 % (0.0-0.5); Lymphocytes Absolute Auto 1.7 10^3/uL (1.2-3.8); Mean Corpuscular HGB Conc 33.2 g/dL (29.9-35.2); Mean Corpuscular Hemoglobin 34.0 pg (26.7-34.0); Mean Corpuscular Volume 102.4 fL (81.0-99.0); Platelet Count 296 10^3/uL (150-450); Red Blood Count 4.15 10^6/uL (4.20-5.40); White Blood Count 5.8 10^3/uL (4.0-11.0)
== END 2025-05-30 07:38 | disposition home or self-care (01) ==
LOC: CARD 07:38
PROVIDERS: PCP Internal Medicine
DX: Z01.812 Encounter for preprocedural laboratory examination (principal); Z01.818 Encounter for other preprocedural examination
CPT/HCPCS: 36415; 80048; 85025; 93005